=== PATIENT | female | born 1960 | race Caucasian/White ===

== ENCOUNTER → 2018-12-20 09:01 | Outpatient (CLI) | payer OTHER, SELFPAY ==
[2018-12-20 09:19] LABS: Hematocrit 37.3 % (36-46); Hemoglobin 12.6 g/dL (12.0-16.0); Mean Corpuscular HGB Conc 33.7 % (30-36); Mean Corpuscular Hemoglobin 30.1 PG (26-34); Mean Corpuscular Volume 89.5 fL (80-100); Platelet Count 228 X10^3/uL (150-400); Red Blood Cell Count 4.17 X10^6/uL (4.0-5.2); Red Cell Distribution Width 14.3 % (11.6-14.8)
[2018-12-20 09:50] LABS: Alanine Aminotransferase 18 IU/L (<35); Albumin Globulin Ratio 1.6 (1.0-2.8); Alkaline Phosphatase 34 U/L (38-126); Aspartate Aminotransferase 29 IU/L (14-36); BUN Creatinine Ratio 21.4 (6-22); Bilirubin Total 0.4 mg/dL (0.2-1.3); Blood Urea Nitrogen 15 mg/dL (7-17); Calcium 9.1 mg/dL (8.4-10.2); Carbon Dioxide 30 mmol/L (22-32); Chloride 102 mmol/L (98-107); Cholesterol 164 mg/dL (140-199); Estimated Glomerular Filt Rate > 60.0 mL/min (>60); Globulin 2.5 g/dL (1.7-4.1); Glucose 104 mg/dL (80-110); HDL Cholesterol 66 mg/dL (40-60); HEMOLYSIS < 15 (0-50); LDL Cholesterol Calculated 80 mg/dL (<100); Potassium 4.3 mmol/L (3.4-5.1); Sodium 136 mmol/L (137-145); Total Protein 6.5 g/dL (6.3-8.2); Triglycerides 91 mg/dL (35-150)
== END ==
PROVIDERS: PCP Nurse Practitioner Family; Visit Provider Nurse Practitioner Family
DX: Z00.00 Encounter for general adult medical examination without abnormal findings (principal)
CPT/HCPCS: 36415; 80053; 80061; 85027

== ENCOUNTER → 2019-12-19 09:37 | Outpatient (CLI) | payer OTHER, SELFPAY ==
[2019-12-19 10:05] LABS: Add Manual Diff / Slide Review NO; Basophils Absolute Auto 0 /uL (0-100); Eosinophils Absolute Auto 100 /uL (0-450); Eosinophils Percent Auto 2.6 % (2-4); Hematocrit 36.7 % (36-46); Hemoglobin 12.4 g/dL (12.0-16.0); Lymphocytes Absolute Auto 1200 /uL (1100-4500); Lymphocytes Percent Auto 30.2 % (25-40); Mean Corpuscular HGB Conc 33.7 % (30-36); Mean Corpuscular Hemoglobin 29.8 PG (26-34); Mean Corpuscular Volume 88.6 fL (80-100); Monocytes Absolute Auto 300 /uL (0-900); Monocytes Percent Auto 8.8 % (3-14); Neutrophils Absolute Auto 2200 /uL (1500-7000); Neutrophils Percent Auto 57.4 % (50-75); Platelet Count 230 X10^3/uL (150-400); Red Blood Cell Count 4.14 X10^6/uL (4.0-5.2); White Blood Cell Count 3.9 X10^3/uL (4.5-11.0)
[2019-12-19 10:16] LABS: Blood Urea Nitrogen 12 mg/dL (7-17); Calcium 9.1 mg/dL (8.4-10.2); Carbon Dioxide 33 mmol/L (22-32); Chloride 102 mmol/L (98-107); Estimated Glomerular Filt Rate > 60.0 mL/min (>60); Glucose 115 mg/dL (80-110); HEMOLYSIS < 15 (0-50); Potassium 4.3 mmol/L (3.4-5.1); Sodium 137 mmol/L (137-145)
[2019-12-19 12:12] LABS: Hemoglobin A1C% w Est Avg Glu 5.8 % (4.0-6.0)
== END ==
PROVIDERS: PCP Nurse Practitioner Family; Referring Provider Nurse Practitioner Family; Visit Provider Nurse Practitioner Family
DX: D72.819 Decreased white blood cell count, unspecified (principal); E87.1 Hypo-osmolality and hyponatremia; R73.9 Hyperglycemia, unspecified
CPT/HCPCS: 36415; 80048; 83036; 85025

== ENCOUNTER → 2020-03-30 11:52 | Outpatient (CLI) | payer OTHER, SELFPAY ==
[2020-03-30 12:28] LABS: COVID19 -Nasal RAPID Negative (Negative)
== END ==
PROVIDERS: PCP Nurse Practitioner Family; Visit Provider Surgery
DX: Z01.812 Encounter for preprocedural laboratory examination (principal); Z20.822 Contact with and (suspected) exposure to COVID-19
CPT/HCPCS: 87635; C9803

== ENCOUNTER 2020-04-02 13:33 | Day surgery (SDC) | payer OTHER, SELFPAY ==
[2020-04-02] VITALS (7 sets, daily range): BP systolic 117–154; BP diastolic 59–90; PULSE 16–89; RESP 12–72; TEMP 36.3–36.9; O2SAT 93–97; BMI 26.6
[2020-04-02] MEDS: LACTATED RINGERS 1,000 ML 200 ML IV (13:50)
--- NOTE | 2020-04-02 14:57 | PM.HP.1 ---
History of Present Illness History of Present Illness Date Patient Seen: 04/02/20 Time Patient Seen: 14:57 Chief complaint: [facility] Narrative: The patient presents for colorectal sreening. She had a normal colonoscopy 5 years ago and she has had prior polyps removed and previous endoscopies. Family history is significant for first-degree relative with colon cancer. On further history denies any recent gastrointestinal symptoms. No nausea, vomiting, abdominal pain, loss of appetite, unexplained weight loss, change in bowel habits, diarrhea, constipation, melena, hematochezia, or bright red blood per rectum. Patient History Medical History Altered bowel habits Anemia (~2012) Colon polyps (~2012) Herpes (~1985) Measles (~1962) Mumps (~1962) Pain of left breast Personal history of breast cancer (2014) Postnasal drip Shoulder pain (~2015) Surgical History Anesthesia History of dilatation and curettage (~1997) History of hand surgery (~1998) History of hand surgery (~2003) Status post breast lumpectomy (~2014) Family & Social History Family History Father Hypertension Stroke Mother Cancer Diabetes mellitus Hypertension Alzheimer's disease Dementia Brother Diabetes mellitus Tobacco & Substance use: Smoking Status Never smoker alcohol intake current alcohol intake frequency a few times a month Substance Use Type does not use Meds Home Medications and Allergies Home Medications Medication Instructions Recorded Confirmed Type Digest Basic PO DAILY 12/13/18 12/20/19 History Lactobacil.acidophilus-Bifido.animalis 1 cap PO DAILY 12/13/18 12/20/19 History 5 billion cell sprinkle capsule [place] [place] Ramon PO DAILY 12/13/18 12/20/19 History Reishi PO DAILY 12/13/18 12/20/19 History [place] Tail PO DAILY 12/13/18 12/20/19 History magnesium oxide,aspartate,citr mg PO 12/13/18 12/20/19 History kplpuqyt-amv-lcxp 18 mg-FA 400 tab PO 12/13/18 12/20/19 History mcg-calcium 500 mg-vit K 50 mcg tablet varicella-zoster glycoE [id number] 0.5 ml IM ONCE #1 each 12/13/18 12/20/19 Rx adj(PF) 50 mcg/0.5 mL IM susp, kit vitamin B complex 1 tab PO DAILY 12/13/18 12/20/19 History sodium,potassium,mag sulfates 17.5 177 ml PO DAILY #354 ml 03/26/20 Rx gram-3.13 gram-1.6 gram oral soln Allergies Allergy/AdvReac Type Severity Reaction Status Date / Time No Known Drug Allergies Allergy Verified 04/02/20 13:51 Review of Systems Review of Systems ROS: Yes All systems reviewed with the patient and are negative except as otherwise documented Exam Vital Signs (past 8 hours): - 04/02/20 13:53 Temperature 98.4 F Pulse Rate 71 Respiratory Rate 18 Blood Pressure 122/84 Pulse Oximetry 97 Oxygen Delivery Method Room Air Narrative Exam Narrative: General-no acute distress, well nourished adult woman HEENT-moist mucous membranes, no scleral icterus Neck-supple, no lymphadenopathy Chest- non labored respirations, clear to auscultation bilaterally Cardiac-regular rate no peripheral edema Abdomen-soft, nontender, non distended Extremities-warm, well perfused Neurological-alert and oriented, no focal deficits Assessment & Plan Assessment & Plan narrative: The patient requires colorectal screening and colonoscopy is recommended. Technical details were discussed. Risks, benefits, alternatives explained. Risks including but not limited to myocardial infarction, aspiration, bleeding, pain, missed lesion, incomplete examination, need for further radiographic studies, colonic perforation, and need for major abdominal surgery were discussed. All questions were answered to their satisfaction, and they are in agreement with this plan.
[2020-04-02] MEDS: fentaNYL 250 MCG/5 ML INJ IV (15:25)
[2020-04-02] MEDS: MIDAZOLAM 5 MG/5 ML VIAL IV (15:25)
--- NOTE | 2020-04-02 15:29 | PM.OP.ENDO ---
Operative Date/Time/Diagnoses Date of procedure: 04/02/20 Time of procedure: 15:29 Pre-op diagnosis: Family history of colon cancer Post-op diagnosis: same Procedure & Clinicians Study performed: Colonoscopy Indications: 59-year-old female last colonoscopy 5 years ago first-degree relative with colon cancer Surgeon: John Martinez Procedure Notes Procedure in detail: Medications: Conscious sedation using 5mg IV midazolam and 150mcg IV of fentanyl The history and physical was performed/updated and the patient is ASA class is 2. The procedure was discussed in detail with the patient. Potential risks complications including infection, bleeding, missed diagnosis, perforation, need for surgery, and were explained. Their questions were answered and informed consent was obtained. Patient was brought to the procedure room and placed standard monitoring equipment. The patient's vital signs were monitored continuously throughout the entire procedure. Prior to starting time-out was performed. The patient was placed in the left lateral recumbent position. Procedural sedation was administered. Examination began with a thorough inspection of the perianal area there was no evidence of fissures, fistulae, external hemorrhoids or cutaneous malignancy. The colonoscopy scope was then placed into the anal canal and was advanced to the cecum, which was identified by the ileocecal valve, the appendiceal orifice and the confluence of the taenia. The scope was then slowly withdrawn examining colon thoroughly in all directions, irrigating it of any residual stool. No masses or polyps Sigmoid diverticulosis Grade 1 internal hemorrhoids The patient tolerated the procedure well. They will be discharged once criteria are met. The prep was of good/excellent quality. The withdrawl time was 7 minutes. The sedation time was 20 minutes. Specimen(s): none sent Complications: none Impression: Normal colonoscopy Post-procedure Recommendations: Colonscopy in 5 years Disposition: same day surgery
== END 2020-04-02 16:07 | disposition home or self-care (01) ==
PROVIDERS: PCP Nurse Practitioner Family; Referring Provider Surgery; Visit Provider Surgery
PROC: 0DJD8ZZ Inspection of Lower Intestinal Tract, Via Natural or Artificial Opening Endoscopic (ICD-10-PCS; CPT 45378; principal; 2020-04-02 14:30)
DX: Z12.11 Encounter for screening for malignant neoplasm of colon (principal); Z80.0 Family history of malignant neoplasm of digestive organs; K57.30 Diverticulosis of large intestine without perforation or abscess without bleeding; K64.0 First degree hemorrhoids
CPT/HCPCS: 45378; 99152; J2250; J3010

== ENCOUNTER → 2021-05-06 11:57 | Outpatient (CLI) | payer OTHER, SELFPAY ==
--- NOTE | 2021-05-06 12:00 | DI.RAD.S_ITS ---
PROCEDURE: XR KNEE LT 3V INDICATIONS: ongoing pain TECHNIQUE: 3 views of the knee were acquired. COMPARISON: None. FINDINGS: Bones: No fractures or dislocations. No suspicious bony lesions. Mild tricompartmental knee joint degeneration. Soft tissues: No joint effusion. No suspicious soft tissue calcifications. IMPRESSION: Mild degenerative joint disease. Dictated by: Jamison Brown M.D. on 05/06/2021 at 14:17 Approved by: Jamison Brown M.D. on 05/06/2021 at 14:17
== END ==
PROVIDERS: Family Provider Nurse Practitioner Family; PCP Nurse Practitioner Family; Referring Provider Nurse Practitioner Family; Visit Provider Nurse Practitioner Family
DX: M25.562 Pain in left knee (principal); M17.12 Unilateral primary osteoarthritis, left knee
CPT/HCPCS: 73562

== ENCOUNTER → 2021-05-07 09:31 | Outpatient (CLI) | payer OTHER, SELFPAY ==
[2021-05-07 10:24] LABS: Hematocrit 36.9 % (36-46); Hemoglobin 12.4 g/dL (12.0-16.0); Mean Corpuscular HGB Conc 33.7 % (30-36); Mean Corpuscular Hemoglobin 29.5 PG (26-34); Mean Corpuscular Volume 87.6 fL (80-100); Platelet Count 274 X10^3/uL (150-400); Red Blood Cell Count 4.21 X10^6/uL (4.0-5.2); Red Cell Distribution Width 14.2 % (11.6-14.8); White Blood Cell Count 4.6 X10^3/uL (4.5-11.0)
[2021-05-07 11:17] LABS: Alanine Aminotransferase 19 IU/L (<35); Albumin 4.4 g/dL (3.5-5.0); Albumin Globulin Ratio 1.5 (1.0-2.8); Alkaline Phosphatase 45 U/L (38-126); Aspartate Aminotransferase 27 IU/L (14-36); BUN Creatinine Ratio 17.2 (6-22); Bilirubin Total 0.4 mg/dL (0.2-1.3); Blood Urea Nitrogen 11 mg/dL (7-17); Calcium 9.3 mg/dL (8.4-10.2); Carbon Dioxide 30 mmol/L (22-32); Chloride 102 mmol/L (98-107); Cholesterol 200 mg/dL (140-199); Estimated Glomerular Filt Rate > 60.0 mL/min (>60); Globulin 2.9 g/dL (1.7-4.1); Glucose 99 mg/dL (80-110); HDL Cholesterol 65 mg/dL (40-60); HEMOLYSIS < 15 (0-50); LDL Cholesterol Calculated 116 mg/dL (<100); Potassium 4.3 mmol/L (3.4-5.1); Sodium 137 mmol/L (137-145); Total Protein 7.3 g/dL (6.3-8.2); Triglycerides 95 mg/dL (35-150)
== END ==
PROVIDERS: Family Provider Nurse Practitioner Family; PCP Nurse Practitioner Family; Referring Provider Nurse Practitioner Family; Visit Provider Nurse Practitioner Family
DX: M25.562 Pain in left knee (principal); R10.2 Pelvic and perineal pain; Z00.00 Encounter for general adult medical examination without abnormal findings; Z13.6 Encounter for screening for cardiovascular disorders
CPT/HCPCS: 36415; 80053; 80061; 85027

== ENCOUNTER 2021-05-13 08:15 | Outpatient (RCR) | payer OTHER, SELFPAY ==
--- NOTE | 2021-04-08 17:47 | PT.OPPOC ---
Physical, Occupational & Speech Therapy At [facility] Current Diagnoses Pain in left knee (04/08/21) Visit Care Team Role Provider Type YESICA Meza Attending Provider Advanced Director Of Instruction Family Provider Primary Care Provider Referring Provider Specialty: Family Practice Address: [address] [place] [address], [id number] Email: [email or web address] Plan Of Care PT-OP-T Assessment and Plan Start: 04/02/21 16:53 Freq: Status: Active Protocol: Document 04/08/21 09:07 LRN (Rec: 04/08/21 12:20 LRN [id number]) Physical Therapy Assessment Rehab Potential Rehabilitation Potential Good Evaluation Complexity Number of Personal Factors/Comorbidities 0 Number of Body Systems Impaired 4 or More Clinical Presentation at Evaluation Evolving Impairments Impairments Activity Tolerance,Edema,Gait, Pain,ROM,Soft Tissue Mobility Goals Three Impairment Decreased function of L knee. Impairment Pt not able to ambulate down stairs without pain or with eventual onset of pain. LEFS score is 49 (20-39% impaired, score of 48-62) Short Term Goal (STG) Improve L knee AROM and Improve LEFS score. STG Duration 05/08/21 Machined Parts Metal Sprayer Goal (LTG) Pt will be able to ambulate up /down stairs with 0/10 pain at L knee. LTG Duration 06/21/21 Two Impairment Intermittent inability to exercise due to L knee pain rated 4/10. Impairment Pt not able to hike or walking inclines/declines without L knee pain. Short Term Goal (STG) Pt will be able to exercise on stationary bike at 70 rpm for 10 minutes to improve endurance. STG Duration 04/22/21 Machined Parts Metal Sprayer Goal (LTG) Improve posture (strengthen hamstrings) to minimize hyperextension of L knee, with pt able to get back to walking and hiking without pain. LTG Duration 06/21/21 One Impairment Pt lacks appropriates self care HEP Short Term Goal (STG) Pt will be educated in precautions of movement (no forcing movement if locked), and educated in self K-taping for edema and stability of L medial knee. STG Duration 04/15/21 Penitentiary Goal (LTG) Pt will be independent in a self care HEP of LLE strengthening ex's. LTG Duration 06/21/21 Assessment Summary Assessment Pt presents with possible L knee meniscus injury. She demonstrated a negative Frandy Test, but a positive Apley's Test, indicating possible meniscus injury. The pt's subjective reports also indicates possible meniscus involvement. The pt does demonstrate mechanical changes in her posture with visible valgus and hyperextension of the knees that are contributing to her lingering pain. The pt will benefit from skilled physical therapy for strengthening of the hips, knees (focus on hamstrings) and ankles, and will be progressed in her ambulatory and stair climbing abilities as she is able to tolerate. If the pt is not able to regain stability and pain resolution, it would be appropriate to assess for possible meniscus injury. The pt's rehabilitation time may be prolonged due to her insurance restrictions limiting her therapy visits. Physical Therapy Plan Frequency and Duration Frequency of Treatment 2x/Week Plan of Care Start Date 04/08/21 Plan of Care End Date 06/21/21 Therapeutic Interventions Therapeutic Interventions Home Exercise Program,Manual Therapy,Neuromuscular Re- education,Patient/Caregiver Education,Self-Care/Home Management,Soft Tissue Mobilization,Taping, Therapeutic Exercises Modalities Cold Pack/Ice Massage,Electric Stimulation,Hot Packs, Ultrasound Next Visit Focus/Plan Next Note Type Treatment Note Next Visit Plan Knee rehab for possible meniscus injury. Discuss POC in regards to insurance visit limit to date. Educate pt in proper standing posture (knees & thoracic spine) Assess balance before and after K-tape. K-tape with self care education, Increase L knee strength ( hamstrings - OKC 30-90 deg's > quads), strengthening with use of TBall, L ankle and hip ext strength, Improve L knee flexion mobility, Balance, gait & stair training , Improve L LE endurance (CKC rpm 70 or greater). Modalities of MH/Ice. Plan of Care Dates Plan of Care Start Date 04/08/21 Plan of Care End Date 06/21/21 Electronically Signed by: Oliva Baker, PT 04/10/21 0817 Please Sign and Return: I have reviewed this Plan of Care and certify that the skilled therapy services above are required to meet the patient?s needs. Physician Signature Date Printed Name and Credentials Clinical Instructor Signature Printed Name and Credentials
--- NOTE | 2021-04-08 17:47 | PT.OIE ---
Current Diagnoses Pain in left knee (04/08/21) Past Medical History (Last Reviewed 03/26/21 @ 13:30 by YESICA Kline) Altered bowel habits Anemia (~2012) Colon polyps (~2012) Herpes (~1985) History of dilatation and curettage (~1997) History of hand surgery (~1998) History of hand surgery (~2003) Left knee pain Measles (~1962) Mumps (~1962) Pain of left breast Personal history of breast cancer (2015) Postnasal drip Shoulder pain (~2015) Status post breast lumpectomy (~2014) Past Surgical History (Last Reviewed 03/26/21 @ 13:30 by YESICA Kline) Anesthesia History of dilatation and curettage (~1997) History of hand surgery (~1998) History of hand surgery (~2003) Status post breast lumpectomy (~2014) Visit Care Team Role Provider Type YESICA Meza Attending Provider Advanced Cut Off Machine Unloader Family Provider Primary Care Provider Referring Provider Specialty: Family Practice Address: [address] [place] [address], [facility] Email: [email or web address] Physical Therapy Initial Evaluation PT-OP-A Visit Information Start: 04/02/21 16:53 Freq: Status: Active Protocol: Document 04/08/21 09:07 LRLucila (Rec: 04/08/21 12:20 TORRI [id number]) Out-Patient Physical Therapy Visit Information Visit Information Visit Type Initial Evaluation Visit Note 6 of 25 visits allowed Visit Start Time 09:07 Visit Stop Time 09:54 Total Visit Minutes 53 Visit Number 1 Evaluation Information Evaluation Date 04/08/21 Precautions Precautions History of breast cancer in 2014. PT-OP-B Current Condition Start: 04/02/21 16:53 Freq: Status: Active Protocol: Document 04/08/21 09:07 LRN (Rec: 04/08/21 12:20 [email or web address] [id number]) Current Condition History of Current Condition Onset Date 6 weeks ago decided to seek medical care Current Complaints L knee pain intermittent History of Current Condition 6 months ago was doing wall squats, lunges, and sitting back on heels (on the floor), then a couple days later started to have knee pain. Denies injury of pain. Pain was initially under the patella, but now is around the joint. No change in last 6 months. L knee pain is intermittent in the days and after a day or two. Always wakes with pain. Has a click and has pain. If walks a lot, gets pain. Crossing leg and hears a click and all is fine. Walking even surfaces is fine, getting in/out of car is concerning because if have a twist, then can have pain. States downhill and down stairs is more painful than up. Walks a couple miles her L knee hurts . Feels like hyperextended L knee. Bending over sometimes causes the pain. Prior Treatments and Tests None Future Testing and Treatments Planned None Treatment Goals Patient/Caregiver Goals Pt goal is to get back to walking and hiking and stairs without pain. Prior Functional Status Baseline Function- ADL's Independent Baseline Function- Mobility Independent Baseline Function- Recreation/Hobbies 5 miles a day walking and hiking and able to do inclines /stairs without pain. Baseline Function- Other Able to squat Current Functional Impairments (Reported) Functional Limitations- ADL's Not able to squat Functional Limitations- Mobility/Gait Can only walk on flat surface 2 miles without pain. Not able to walk inclines/ declines, or hike without pain . Personal Factors Other Personal Factors That May Effect L Lumpectomy 2014 due to Therapy/Recovery breast cancer, clear ever since. Spouse, not working. Moved to [place] a couple years ago. PT-OP-C Subjective Start: 04/02/21 16:53 Freq: Status: Active Protocol: Document 04/08/21 09:07 N (Rec: 04/08/21 12:20 N [id number]) Patient Questionnaires Lower Extremity Functional Scale LEFS Score 49 LEFS Impairment 20 to 39% Impaired (Score 48- 62) OP-PT Pain Assessment Pain Assessment Grid Paper Pain Assessment Grid Completed Yes Location L knee Pain Location Details L knee joint Intensity 4 Scale Used Numeric (0 - 10) Frequency Occasional Pain Duration No pattern to pain Pain Aggravating Factors Changing Position,Walking Other Pain Aggravating Factors Sometimes Quad strengthening Comments Pain Comments When having L knee pain, pain getting up out of chair and with initial walk and if walking too far. When having the pain also has pain in L SIJ. PT-OP-G Mobility & Gait Start: 04/02/21 16:53 Freq: Status: Active Protocol: Document 04/08/21 09:07 LRN (Rec: 04/08/21 12:20 LRN [id number]) Stair Climbing Evaluation Comments Stair Climbing Comments States she starts to get L knee pain going down stairs. Uses railing on the R whenever she can. PT-OP-J Posture/Palpation/Skin Start: 04/02/21 16:53 Freq: Status: Active Protocol: Document 04/08/21 09:07 LRN (Rec: 04/08/21 12:20 LRN [id number]) Posture Evaluation Position Standing Head/C-Spine Posture Forward Head T-Spine Posture Flattened L-Spine Posture Decreased Lordosis Pelvis Posture Neutral Weight Distribution Balanced Hip Posture (R) Externally Rotated Knee Posture (L) Genu Valgus,(R) Genu Valgus Ankle/Foot Posture (L) Calcaneal Eversion Foot Arch (R) Low Arch,(L) No Arch Comments Posture Comments Kyphosis at mid back, develped calf left > right. Palpation Assessment Location L knee Palpation Location L knee patella and joint. Palpation Details Crepitus at patella. No palpable tenderness. PT-OP-K Range of Motion Start: 04/02/21 16:53 Freq: Status: Active Protocol: Document 04/08/21 09:07 LRN (Rec: 04/08/21 12:20 N [id number]) Hip Goniometric Range of Motion Hip Right Passive Hip ROM WFL Yes Testing Position Supine Straight Leg Raise 90 Left Passive Testing Position Supine Straight Leg Raise 90 Knee Goniometric Range of Motion Knee Right Knee ROM WFL Yes Patient Position Supine Flexion Active (degrees) 140 Comments Passive ext: Hyperext of 8 deg 's Left Knee ROM WFL No Patient Position Supine Flexion Active (degrees) 139 Comments Uncomfortable in max flexion Passive ext: Hyperext of 8 deg 's PT-OP-L Special Tests Start: 04/02/21 16:53 Freq: Status: Active Protocol: Document 04/08/21 09:07 LRN (Rec: 04/08/21 12:20 [facility] [id number]) Special Tests Knee Special Tests Apley's Compression Test Results L knee positive with compression and IR Patellar Grind Test Test Results L knee positive Frandy Test Test Results L knee negative Varus- 25 Degrees Test Results L knee negative Valgus- 25 Degrees Test Results L knee negative Kirk's Test Results L knee negative Anterior Draw Test Results L knee negative PT-OP-M Strength Start: 04/02/21 16:53 Freq: Status: Active Protocol: Document 04/08/21 09:07 LRN (Rec: 04/08/21 12:20 LRN [id number]) Hip Strength Hip Manual Muscle Testing Right Extension (S1) 4- Good- Comments Generally 5/5, except as noted above Left Extension (S1) 4- Good- Comments Generally 5/5, except as noted above Knee Strength Knee Manual Muscle Testing Right Comments Generally 5/5 Left Comments Generally 5/5 Ankle/Foot Strength Ankle and Foot Manual Muscle Testing Right Comments Generally 5/5 Left Comments Generally 5/5 PT-OP-Q Treatments Start: 04/02/21 16:53 Freq: Status: Active Protocol: Document 04/08/21 09:07 LRN (Rec: 04/08/21 12:20 LRN [id number]) Self-Care/Home Management Treatment Education Other Education Discussed at length results of evaluation, discussed her goals and plan of care that pt was agreeable to. Discussed post therapy results and possible further evaluations for meniscus injury. Discussed briefly pt to not force unlock knee if becomes stuck. Discussed RICE treatment for edema management. Discussed possible use of K- tape for pain and edema management. Deferred further talk due to time and assured pt that use of K-tape would be appropriate. Activities Self-Care/Home Management Activities I/S pt in HEP: Knee flex strengthening. Discussed ex's that she is doing at home. Ok'd ex with T-ball for supine knee flexion and bridging with ankles on T-ball. PT-OP-T Assessment and Plan Start: 04/02/21 16:53 Freq: Status: Active Protocol: Document 04/08/21 09:07 LRN (Rec: 04/08/21 12:20 LRN [id number]) Physical Therapy Assessment Rehab Potential Rehabilitation Potential Good Evaluation Complexity Number of Personal Factors/Comorbidities 0 Number of Body Systems Impaired 4 or More Clinical Presentation at Evaluation Evolving Impairments Impairments Activity Tolerance,Edema,Gait, Pain,ROM,Soft Tissue Mobility Goals Three Impairment Decreased function of L knee. Impairment Pt not able to ambulate down stairs without pain or with eventual onset of pain. LEFS score is 49 (20-39% impaired, score of 48-62) Short Term Goal (STG) Improve L knee AROM and Improve LEFS score. STG Duration 05/08/21 Half-Way Goal (LTG) Pt will be able to ambulate up /down stairs with 0/10 pain at L knee. LTG Duration 06/21/21 Two Impairment Intermittent inability to exercise due to L knee pain rated 4/10. Impairment Pt not able to hike or walking inclines/declines without L knee pain. Short Term Goal (STG) Pt will be able to exercise on stationary bike at 70 rpm for 10 minutes to improve endurance. STG Duration 04/22/21 Half-Way Goal (LTG) Improve posture (strengthen hamstrings) to minimize hyperextension of L knee, with pt able to get back to walking and hiking without pain. LTG Duration 06/21/21 One Impairment Pt lacks appropriates self care HEP Short Term Goal (STG) Pt will be educated in precautions of movement (no forcing movement if locked), and educated in self K-taping for edema and stability of L medial knee. STG Duration 04/15/21 Shredded Filler Cutter Operator Goal (LTG) Pt will be independent in a self care HEP of LLE strengthening ex's. LTG Duration 06/21/21 Assessment Summary Assessment Pt presents with possible L knee meniscus injury. She demonstrated a negative Frandy Test, but a positive Apley's Test, indicating possible meniscus injury. The pt's subjective reports also indicates possible meniscus involvement. The pt does demonstrate mechanical changes in her posture with visible valgus and hyperextension of the knees that are contributing to her lingering pain. The pt will benefit from skilled physical therapy for strengthening of the hips, knees (focus on hamstrings) and ankles, and will be progressed in her ambulatory and stair climbing abilities as she is able to tolerate. If the pt is not able to regain stability and pain resolution, it would be appropriate to assess for possible meniscus injury. The pt's rehabilitation time may be prolonged due to her insurance restrictions limiting her therapy visits. Physical Therapy Plan Frequency and Duration Frequency of Treatment 2x/Week Plan of Care Start Date 04/08/21 Plan of Care End Date 06/21/21 Therapeutic Interventions Therapeutic Interventions Home Exercise Program,Manual Therapy,Neuromuscular Re- education,Patient/Caregiver Education,Self-Care/Home Management,Soft Tissue Mobilization,Taping, Therapeutic Exercises Modalities Cold Pack/Ice Massage,Electric Stimulation,Hot Packs, Ultrasound Next Visit Focus/Plan Next Note Type Treatment Note Next Visit Plan Knee rehab for possible meniscus injury. Discuss POC in regards to insurance visit limit to date. Educate pt in proper standing posture (knees & thoracic spine) Assess balance before and after K-tape. K-tape with self care education, Increase L knee strength ( hamstrings - OKC 30-90 deg's > quads), strengthening with use of TBall, L ankle and hip ext strength, Improve L knee flexion mobility, Balance, gait & stair training , Improve L LE endurance (CKC rpm 70 or greater). Modalities of MH/Ice.
--- NOTE | 2021-04-12 16:25 | PT.OTN ---
Current Diagnoses Pain in left knee (04/12/21) Physical Therapy Treatment Note PT-OP-A Visit Information Start: 04/02/21 16:53 Freq: Status: Active Protocol: Document 04/12/21 09:04 LRN (Rec: 04/12/21 09:51 LRN [id number]) Out-Patient Physical Therapy Visit Information Visit Information Visit Type Treatment Note Visit Note 03/14 approved, 08/30 allowed Visit Start Time 09:04 Visit Stop Time 09:42 Total Visit Minutes 38 Visit Number 2 Evaluation Information Evaluation Date 04/08/21 Precautions Precautions History of breast cancer in 2014. PT-OP-B Current Condition Start: 04/02/21 16:53 Freq: Status: Active Protocol: Document 04/08/21 09:07 LRN (Rec: 04/08/21 12:20 LRN [id number]) Current Condition History of Current Condition Onset Date 6 weeks ago decided to seek medical care Current Complaints L knee pain intermittent History of Current Condition 6 months ago was doing wall squats, lunges, and sitting back on heels (on the floor), then a couple days later started to have knee pain. Denies injury of pain. Pain was initially under the patella, but now is around the joint. No change in last 6 months. L knee pain is intermittent in the days and after a day or two. Always wakes with pain. Has a click and has pain. If walks a lot, gets pain. Crossing leg and hears a click and all is fine. Walking even surfaces is fine, getting in/out of car is concerning because if have a twist, then can have pain. States downhill and down stairs is more painful than up. Walks a couple miles her L knee hurts . Feels like hyperextended L knee. Bending over sometimes causes the pain. Prior Treatments and Tests None Future Testing and Treatments Planned None Treatment Goals Patient/Caregiver Goals Pt goal is to get back to walking and hiking and stairs without pain. Prior Functional Status Baseline Function- ADL's Independent Baseline Function- Mobility Independent Baseline Function- Recreation/Hobbies 5 miles a day walking and hiking and able to do inclines /stairs without pain. Baseline Function- Other Able to squat Current Functional Impairments (Reported) Functional Limitations- ADL's Not able to squat Functional Limitations- Mobility/Gait Can only walk on flat surface 2 miles without pain. Not able to walk inclines/ declines, or hike without pain . Personal Factors Other Personal Factors That May Effect L Lumpectomy 2015 due to Therapy/Recovery breast cancer, clear ever since. Spouse, not working. Moved to [place] a couple years ago. PT-OP-C Subjective Start: 04/02/21 16:53 Freq: Status: Active Protocol: Document 04/12/21 09:04 LRN (Rec: 04/12/21 09:51 LRN [id number]) OP-PT Subjective Patient Comments Patient Comments States did a lot of gardening and Sat was not a good day due to L knee pain. Today 2/10 pain (uncomfortable). PT-OP-G Mobility & Gait Start: 04/02/21 16:53 Freq: Status: Active Protocol: Document 04/08/21 09:07 LRN (Rec: 04/08/21 12:20 LRN [id number]) Stair Climbing Evaluation Comments Stair Climbing Comments States she starts to get L knee pain going down stairs. Uses railing on the R whenever she can. PT-OP-J Posture/Palpation/Skin Start: 04/02/21 16:53 Freq: Status: Active Protocol: Document 04/08/21 09:07 LRN (Rec: 04/08/21 12:20 LRN [id number]) Posture Evaluation Position Standing Head/C-Spine Posture Forward Head T-Spine Posture Flattened L-Spine Posture Decreased Lordosis Pelvis Posture Neutral Weight Distribution Balanced Hip Posture (R) Externally Rotated Knee Posture (L) Genu Valgus,(R) Genu Valgus Ankle/Foot Posture (L) Calcaneal Eversion Foot Arch (R) Low Arch,(L) No Arch Comments Posture Comments Kyphosis at mid back, develped calf left > right. Palpation Assessment Location L knee Palpation Location L knee patella and joint. Palpation Details Crepitus at patella. No palpable tenderness. PT-OP-K Range of Motion Start: 04/02/21 16:53 Freq: Status: Active Protocol: Document 04/08/21 09:07 LRN (Rec: 04/08/21 12:20 LRN [id number]) Hip Goniometric Range of Motion Hip Right Passive Hip ROM WFL Yes Testing Position Supine Straight Leg Raise 90 Left Passive Testing Position Supine Straight Leg Raise 90 Knee Goniometric Range of Motion Knee Right Knee ROM WFL Yes Patient Position Supine Flexion Active (degrees) 140 Comments Passive ext: Hyperext of 8 deg 's Left Knee ROM WFL No Patient Position Supine Flexion Active (degrees) 139 Comments Uncomfortable in max flexion Passive ext: Hyperext of 8 deg 's PT-OP-L Special Tests Start: 04/02/21 16:53 Freq: Status: Active Protocol: Document 04/08/21 09:07 LRN (Rec: 04/08/21 12:20 LRN [id number]) Special Tests Knee Special Tests Apley's Compression Test Results L knee positive with compression and IR Patellar Grind Test Test Results L knee positive Frandy Test Test Results L knee negative Varus- 25 Degrees Test Results L knee negative Valgus- 25 Degrees Test Results L knee negative Kirk's Test Results L knee negative Anterior Draw Test Results L knee negative PT-OP-M Strength Start: 04/02/21 16:53 Freq: Status: Active Protocol: Document 04/08/21 09:07 LRN (Rec: 04/08/21 12:20 LRN [id number]) Hip Strength Hip Manual Muscle Testing Right Extension (S1) 4- Good- Comments Generally 5/5, except as noted above Left Extension (S1) 4- Good- Comments Generally 5/5, except as noted above Knee Strength Knee Manual Muscle Testing Right Comments Generally 5/5 Left Comments Generally 5/5 Ankle/Foot Strength Ankle and Foot Manual Muscle Testing Right Comments Generally 5/5 Left Comments Generally 5/5 PT-OP-Q Treatments Start: 04/02/21 16:53 Freq: Status: Active Protocol: Document 04/12/21 09:04 LRN (Rec: 04/12/21 09:51 LRN [id number]) Cardio Equipment Bicycle (Upright) Duration (Minutes) 7 Resistance Lev 3, RPM of 70 or above Seat Position 4 Other 3' Extra time for 1xt time set up. Gym Equipment Cable Column (Body Solid) Leg Curl Details Leg curl with L as much as possible Resistance 10 Reps/Time 10 Therapeutic Exercises Sitting Exercises L knee flex stretch Sitting Exercise Name L knee flex stretch - after upright bike. Side left Reps/Minutes 10 H x 6 Standing Exercises Knee flex Standing Exercise Name Knee flex Side left Equipment Used Lev 1 Reps/Minutes 4' Comments Modifying leg movement, stopped due to lateral L knee pain Hip Ext Standing Exercise Name Hip Ext Side bilateral Equipment Used Lev 1 Reps/Minutes 15x each Comments phys assist to keep leg moving without ER & AB Other Exercises Long sit Quad sets Other Exercise Name Quad set Side left Reps/Minutes 10 x 10 Comments v cuing to not engage ankle. Manual Therapy Treatment Taping K-tape Body Location Star pattern at lateral L knee joint Treatment Focus Stability Type of Tape Kinesio Tape Skin Inspection Good Comments Pt educated in proper removal of tape and max wear time of 5 days. Educated pt in precautions of use of K-tape. I/S pt to remove 24 hours before next appointment. Self-Care/Home Management Treatment Education Patient Education Home Exercise Program Activities Self-Care/Home Management Activities Verbal I/S of L knee stretch throughout the day. Issued & reviewed HEP: QS & knee flex stretch. PT-OP-T Assessment and Plan Start: 04/02/21 16:53 Freq: Status: Active Protocol: Document 04/12/21 09:04 LRN (Rec: 04/12/21 09:51 LRN [id number]) Physical Therapy Assessment Goals Three Impairment Decreased function of L knee. Impairment Pt not able to ambulate down stairs without pain or with eventual onset of pain. LEFS score is 49 (20-39% impaired, score of 48-62) Short Term Goal (STG) Improve L knee AROM and Improve LEFS score. STG Duration 05/08/21 Warp Knitter Goal (LTG) Pt will be able to ambulate up /down stairs with 0/10 pain at L knee. LTG Duration 06/21/21 Two Impairment Intermittent inability to exercise due to L knee pain rated 4/10. Impairment Pt not able to hike or walking inclines/declines without L knee pain. Short Term Goal (STG) Pt will be able to exercise on stationary bike at 70 rpm for 10 minutes to improve endurance. (04/12/21: Progressed, pt able to do 6 minutes of ex) STG Duration 04/22/21 (04/12/21: Progressed) Warp Knitter Goal (LTG) Improve posture (strengthen hamstrings) to minimize hyperextension of L knee, with pt able to get back to walking and hiking without pain. LTG Duration 06/21/21 One Impairment Pt lacks appropriates self care HEP Short Term Goal (STG) Pt will be educated in precautions of movement (no forcing movement if locked), and educated in self K-taping for edema and stability of L medial knee. (04/12/21: Educated pt in use of K-tape and showed pt star pattern for stability to L lateral knee) STG Duration 04/15/21 (04/12/21: K-tape for stability shown). Warp Knitter Goal (LTG) Pt will be independent in a self care HEP of LLE strengthening ex's. (04/12/21: HEP: QS & Knee flex stretch). LTG Duration 06/21/21 (04/12/21: Progressed ) Progress Towards Goals Progress Comments Progressed HEP and education in use of K-tape. Assessment Summary Assessment Possible L knee meniscus injury but no significant pain to start. Pt is not able to move LE's into pure extension. She tends to ER & ABD her hip with hip ext and needed phys assist to perform properly; therefore further training is needed. Pt only had c/o pain with L knee strengthening in standing with T-Band. Pt appears to have a good understanding of precautions and proper use of K-tape and removal. Physical Therapy Plan Frequency and Duration Frequency of Treatment 2x/Week Plan of Care Start Date 04/08/21 Plan of Care End Date 06/21/21 Next Visit Focus/Plan Next Note Type Treatment Note Next Visit Plan Knee rehab for possible meniscus injury. Discuss POC in regards to insurance visit limit to date (6 approved of 25 allowed). Educate pt in proper standing posture (knees & thoracic spine) Assess balance before and after K-tape, Increase L knee strength ( hamstrings - OKC 30-90 deg's > quads), strengthening with use of TBall, L ankle and hip ext strength, Improve L knee flexion mobility, Balance, gait & stair training , Improve L LE endurance (CKC rpm 70 or greater). Modalities of MH/Ice.
--- NOTE | 2021-04-15 09:50 | PT.OTN ---
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 PT-OP-B Current Condition Start: 04/02/21 16:53 Freq: Status: Active Protocol: Document 04/08/21 09:07 LRN (Rec: 04/08/21 12:20 LRN [id number]) Current Condition History of Current Condition Onset Date 6 weeks ago decided to seek medical care Current Complaints L knee pain intermittent History of Current Condition 6 months ago was doing wall squats, lunges, and sitting back on heels (on the floor), then a couple days later started to have knee pain. Denies injury of pain. Pain was initially under the patella, but now is around the joint. No change in last 6 months. L knee pain is intermittent in the days and after a day or two. Always wakes with pain. Has a click and has pain. If walks a lot, gets pain. Crossing leg and hears a click and all is fine. Walking even surfaces is fine, getting in/out of car is concerning because if have a twist, then can have pain. States downhill and down stairs is more painful than up. Walks a couple miles her L knee hurts . Feels like hyperextended L knee. Bending over sometimes causes the pain. Prior Treatments and Tests None Future Testing and Treatments Planned None Treatment Goals Patient/Caregiver Goals Pt goal is to get back to walking and hiking and stairs without pain. Prior Functional Status Baseline Function- ADL's Independent Baseline Function- Mobility Independent Baseline Function- Recreation/Hobbies 5 miles a day walking and hiking and able to do inclines /stairs without pain. Baseline Function- Other Able to squat Current Functional Impairments (Reported) Functional Limitations- ADL's Not able to squat Functional Limitations- Mobility/Gait Can only walk on flat surface 2 miles without pain. Not able to walk inclines/ declines, or hike without pain . Personal Factors Other Personal Factors That May Effect L Lumpectomy 2015 due to Therapy/Recovery breast cancer, clear ever since. Spouse, not working. Moved to [place] a couple years ago. PT-OP-C Subjective Start: 04/02/21 16:53 Freq: Status: Active Protocol: Document 04/15/21 09:04 SP (Rec: 04/15/21 09:52 SP [id number]) OP-PT Subjective Patient Comments Patient Comments Pt reports felt ok after last tx. Tried to do her exercises since and having pain anterior medial L knee. PT stated didn't think K taping helped, didn't want retaped. PT-OP-G Mobility & Gait Start: 04/02/21 16:53 Freq: Status: Active Protocol: Document 04/08/21 09:07 LRN (Rec: 04/08/21 12:20 LRN [id number]) Stair Climbing Evaluation Comments Stair Climbing Comments States she starts to get L knee pain going down stairs. Uses railing on the R whenever she can. PT-OP-J Posture/Palpation/Skin Start: 04/02/21 16:53 Freq: Status: Active Protocol: Document 04/08/21 09:07 LRN (Rec: 04/08/21 12:20 LRN [id number]) Posture Evaluation Position Standing Head/C-Spine Posture Forward Head T-Spine Posture Flattened L-Spine Posture Decreased Lordosis Pelvis Posture Neutral Weight Distribution Balanced Hip Posture (R) Externally Rotated Knee Posture (L) Genu Valgus,(R) Genu Valgus Ankle/Foot Posture (L) Calcaneal Eversion Foot Arch (R) Low Arch,(L) No Arch Comments Posture Comments Kyphosis at mid back, develped calf left > right. Palpation Assessment Location L knee Palpation Location L knee patella and joint. Palpation Details Crepitus at patella. No palpable tenderness. PT-OP-K Range of Motion Start: 04/02/21 16:53 Freq: Status: Active Protocol: Document 04/08/21 09:07 LRN (Rec: 04/08/21 12:20 LRN [id number]) Hip Goniometric Range of Motion Hip Right Passive Hip ROM WFL Yes Testing Position Supine Straight Leg Raise 90 Left Passive Testing Position Supine Straight Leg Raise 90 Knee Goniometric Range of Motion Knee Right Knee ROM WFL Yes Patient Position Supine Flexion Active (degrees) 140 Comments Passive ext: Hyperext of 8 deg 's Left Knee ROM WFL No Patient Position Supine Flexion Active (degrees) 139 Comments Uncomfortable in max flexion Passive ext: Hyperext of 8 deg 's PT-OP-L Special Tests Start: 04/02/21 16:53 Freq: Status: Active Protocol: Document 04/08/21 09:07 LRN (Rec: 04/08/21 12:20 LRN [id number]) Special Tests Knee Special Tests Apley's Compression Test Results L knee positive with compression and IR Patellar Grind Test Test Results L knee positive Frandy Test Test Results L knee negative Varus- 25 Degrees Test Results L knee negative Valgus- 25 Degrees Test Results L knee negative Kirk's Test Results L knee negative Anterior Draw Test Results L knee negative PT-OP-M Strength Start: 04/02/21 16:53 Freq: Status: Active Protocol: Document 04/08/21 09:07 LRN (Rec: 04/08/21 12:20 LRN [id number]) Hip Strength Hip Manual Muscle Testing Right Extension (S1) 4- Good- Comments Generally 5/5, except as noted above Left Extension (S1) 4- Good- Comments Generally 5/5, except as noted above Knee Strength Knee Manual Muscle Testing Right Comments Generally 5/5 Left Comments Generally 5/5 Ankle/Foot Strength Ankle and Foot Manual Muscle Testing Right Comments Generally 5/5 Left Comments Generally 5/5 PT-OP-Q Treatments Start: 04/02/21 16:53 Freq: Status: Active Protocol: Document 04/15/21 09:04 SP (Rec: 04/15/21 09:52 SP [id number]) Cardio Equipment Recumbent Bicycle Duration (Minutes) 6 Resistance 4 Seat Position on 3 Bicycle (Upright) Other (stated upright bike seat tips forward/ slide off not want use) Gym Equipment Cable Column (Body Solid) Leg Curl Details Leg curl with L as much as possible Resistance 10> 20# Reps/Time x10 each- cued foot with knee alignment Therapeutic Exercises Sitting Exercises HS curl Sitting Exercise Name added to HEP Side left Resistance Tb #1 (anchored rail and ankle ) Equipment Used fully back in chair/ femur supported, slider under foot Reps/Minutes x10 Comments good feedback painfree midrange L knee flex stretch Sitting Exercise Name L knee flex stretch - (SKTC set up) Side left Reps/Minutes 10 H x 6 Comments good form, painfree, good stretch response Standing Exercises step down Standing Exercise Name Initiated for knee/ hip alignment. Side left Resistance AROM Equipment Used 2 wedge step Reps/Minutes x3 reps then walk down wedge assimulate outdoors down hill Comments cued pelvic wt shift posteriorly slightly- good no anterior knee pain. Knee flex Standing Exercise Name Knee flex (knees //) Side left Resistance yellow sport cord, Equipment Used chair contact, mirror feedback Reps/Minutes x10 Comments painfree ok for home Hip Ext Standing Exercise Name Hip Ext- reviewed HEP Side bilateral Resistance AROM> L3 TB Loop Equipment Used chair support,mirror Reps/Minutes 15x each Comments improved self alignment corrections. Self-Care/Home Management Treatment Education Patient Education Body Mechanics,Home Exercise Program,Pain Management, Posture Other Education Time spent education, demonstration, performance decline gait reduce anterior knee pain, cued wt shift hips back little with awareness of posterior chain facilitation with good feedback demonstrated on wedge boards then step down for alignment awareness, not necessarily need do as exercise, recheck next tx. Initiated standing hip ext TB loop, seated HS curl w /T, and step down for mechanics awareness (HOprovided) PT-OP-T Assessment and Plan Start: 04/02/21 16:53 Freq: Status: Active Protocol: Document 04/15/21 09:04 SP (Rec: 04/15/21 09:52 SP [id number]) Physical Therapy Assessment Goals Three Impairment Decreased function of L knee. Impairment Pt not able to ambulate down stairs without pain or with eventual onset of pain. LEFS score is 49 (20-39% impaired, score of 48-62) Short Term Goal (STG) Improve L knee AROM and Improve LEFS score. STG Duration 05/08/21 Detention Goal (LTG) Pt will be able to ambulate up /down stairs with 0/10 pain at L knee. LTG Duration 06/21/21 Two Impairment Intermittent inability to exercise due to L knee pain rated 4/10. Impairment Pt not able to hike or walking inclines/declines without L knee pain. Short Term Goal (STG) Pt will be able to exercise on stationary bike at 70 rpm for 10 minutes to improve endurance. (04/12/21: Progressed, pt able to do 6 minutes of ex) STG Duration 04/22/21 (04/12/21: Progressed) Detention Goal (LTG) Improve posture (strengthen hamstrings) to minimize hyperextension of L knee, with pt able to get back to walking and hiking without pain. LTG Duration 06/21/21 One Impairment Pt lacks appropriates self care HEP Short Term Goal (STG) Pt will be educated in precautions of movement (no forcing movement if locked), and educated in self K-taping for edema and stability of L medial knee. (04/12/21: Educated pt in use of K-tape and showed pt star pattern for stability to L lateral knee) 04/15/21: K taping didnt help, declined retaping- improved pain with ed for knee/hip/ trunk alignment and HS set up muscle tiring. STG Duration 04/15/21 04/15/21: didn't help- DC goal Commercial Solar Sales Consultant Goal (LTG) Pt will be independent in a self care HEP of LLE strengthening ex's. (04/12/21: HEP: QS & Knee flex stretch). LTG Duration 06/21/21 (04/12/21: Progressed ) Assessment Summary Assessment Pt improved L knee alignment corrections post education and emphasis tx on HS facilitation to decrease hyperextension noted during gait. Pt better HS strengthening without pain this tx. Better understanding alignment decline gait. Recheck next tx response. Pt declined upright bike due to seat tilts forward, felt like sliding off forward, trialed recumbent bike, caused pain L knee so stopped. Physical Therapy Plan Frequency and Duration Frequency of Treatment 2x/Week Plan of Care Start Date 04/08/21 Plan of Care End Date 06/21/21 Therapeutic Interventions Therapeutic Interventions Home Exercise Program,Manual Therapy,Neuromuscular Re- education,Patient/Caregiver Education,Self-Care/Home Management,Soft Tissue Mobilization,Taping, Therapeutic Exercises Modalities Cold Pack/Ice Massage,Electric Stimulation,Hot Packs, Ultrasound Next Visit Focus/Plan Next Note Type Treatment Note Next Visit Plan Recheck HEP: seated HS curl TB , hip ext TB loop, step down LLE stance LE posterior chain wt shift. POC: Knee rehab for possible meniscus injury. Discuss POC in regards to insurance visit limit to date (6 approved of 25 allowed). Educate pt in proper standing posture (knees & thoracic spine) Assess balance before and after K-tape, Increase L knee strength ( hamstrings - OKC 30-90 deg's > quads), strengthening with use of TBall, L ankle and hip ext strength, Improve L knee flexion mobility, Balance, gait & stair training , Improve L LE endurance (CKC rpm 70 or greater). Modalities of MH/Ice.
--- NOTE | 2021-04-19 17:16 | PT.OTN ---
Current Diagnoses Pain in left knee (04/19/21) Physical Therapy Treatment Note PT-OP-A Visit Information Start: 04/02/21 16:53 Freq: Status: Active Protocol: Document 04/19/21 08:18 LRN (Rec: 04/19/21 09:06 LRN [id number]) Out-Patient Physical Therapy Visit Information Visit Information Visit Type Treatment Note Visit Start Time 08:18 Visit Stop Time 09:00 Total Visit Minutes 42 Visit Number 4 Evaluation Information Evaluation Date 04/08/21 Precautions Precautions History of breast cancer in 2014. PT-OP-B Current Condition Start: 04/02/21 16:53 Freq: Status: Active Protocol: Document 04/08/21 09:07 LRN (Rec: 04/08/21 12:20 LRN [id number]) Current Condition History of Current Condition Onset Date 6 weeks ago decided to seek medical care Current Complaints L knee pain intermittent History of Current Condition 6 months ago was doing wall squats, lunges, and sitting back on heels (on the floor), then a couple days later started to have knee pain. Denies injury of pain. Pain was initially under the patella, but now is around the joint. No change in last 6 months. L knee pain is intermittent in the days and after a day or two. Always wakes with pain. Has a click and has pain. If walks a lot, gets pain. Crossing leg and hears a click and all is fine. Walking even surfaces is fine, getting in/out of car is concerning because if have a twist, then can have pain. States downhill and down stairs is more painful than up. Walks a couple miles her L knee hurts . Feels like hyperextended L knee. Bending over sometimes causes the pain. Prior Treatments and Tests None Future Testing and Treatments Planned None Treatment Goals Patient/Caregiver Goals Pt goal is to get back to walking and hiking and stairs without pain. Prior Functional Status Baseline Function- ADL's Independent Baseline Function- Mobility Independent Baseline Function- Recreation/Hobbies 5 miles a day walking and hiking and able to do inclines /stairs without pain. Baseline Function- Other Able to squat Current Functional Impairments (Reported) Functional Limitations- ADL's Not able to squat Functional Limitations- Mobility/Gait Can only walk on flat surface 2 miles without pain. Not able to walk inclines/ declines, or hike without pain . Personal Factors Other Personal Factors That May Effect L Lumpectomy 2015 due to Therapy/Recovery breast cancer, clear ever since. Spouse, not working. Moved to [place] a couple years ago. PT-OP-C Subjective Start: 04/02/21 16:53 Freq: Status: Active Protocol: Document 04/19/21 08:18 LRN (Rec: 04/19/21 09:06 LRN [id number]) OP-PT Subjective Patient Comments Patient Comments Pt to be gone for 1.5 wks, going on vacation. After last session her low back was painful. Her knee has felt better. Worked out in garden yesterday and her knee bothered her a little. This morning the knee felt a little worse, but not as bad as Fri/ Sat after last session. Pain is 4-5/10 after trying Recumbent bike. States walking doesn't hurt her. Pain after therapy was 0/10. PT-OP-G Mobility & Gait Start: 04/02/21 16:53 Freq: Status: Active Protocol: Document 04/08/21 09:07 LRN (Rec: 04/08/21 12:20 LRN [id number]) Stair Climbing Evaluation Comments Stair Climbing Comments States she starts to get L knee pain going down stairs. Uses railing on the R whenever she can. PT-OP-J Posture/Palpation/Skin Start: 04/02/21 16:53 Freq: Status: Active Protocol: Document 04/08/21 09:07 LRN (Rec: 04/08/21 12:20 LRN [id number]) Posture Evaluation Position Standing Head/C-Spine Posture Forward Head T-Spine Posture Flattened L-Spine Posture Decreased Lordosis Pelvis Posture Neutral Weight Distribution Balanced Hip Posture (R) Externally Rotated Knee Posture (L) Genu Valgus,(R) Genu Valgus Ankle/Foot Posture (L) Calcaneal Eversion Foot Arch (R) Low Arch,(L) No Arch Comments Posture Comments Kyphosis at mid back, develped calf left > right. Palpation Assessment Location L knee Palpation Location L knee patella and joint. Palpation Details Crepitus at patella. No palpable tenderness. PT-OP-K Range of Motion Start: 04/02/21 16:53 Freq: Status: Active Protocol: Document 04/08/21 09:07 LRN (Rec: 04/08/21 12:20 LRN [id number]) Hip Goniometric Range of Motion Hip Right Passive Hip ROM WFL Yes Testing Position Supine Straight Leg Raise 90 Left Passive Testing Position Supine Straight Leg Raise 90 Knee Goniometric Range of Motion Knee Right Knee ROM WFL Yes Patient Position Supine Flexion Active (degrees) 140 Comments Passive ext: Hyperext of 8 deg 's Left Knee ROM WFL No Patient Position Supine Flexion Active (degrees) 139 Comments Uncomfortable in max flexion Passive ext: Hyperext of 8 deg 's PT-OP-L Special Tests Start: 04/02/21 16:53 Freq: Status: Active Protocol: Document 04/08/21 09:07 LRN (Rec: 04/08/21 12:20 LRN [id number]) Special Tests Knee Special Tests Apley's Compression Test Results L knee positive with compression and IR Patellar Grind Test Test Results L knee positive Frandy Test Test Results L knee negative Varus- 25 Degrees Test Results L knee negative Valgus- 25 Degrees Test Results L knee negative Kirk's Test Results L knee negative Anterior Draw Test Results L knee negative PT-OP-M Strength Start: 04/02/21 16:53 Freq: Status: Active Protocol: Document 04/08/21 09:07 LRN (Rec: 04/08/21 12:20 LRN [id number]) Hip Strength Hip Manual Muscle Testing Right Extension (S1) 4- Good- Comments Generally 5/5, except as noted above Left Extension (S1) 4- Good- Comments Generally 5/5, except as noted above Knee Strength Knee Manual Muscle Testing Right Comments Generally 5/5 Left Comments Generally 5/5 Ankle/Foot Strength Ankle and Foot Manual Muscle Testing Right Comments Generally 5/5 Left Comments Generally 5/5 PT-OP-Q Treatments Start: 04/02/21 16:53 Freq: Status: Active Protocol: Document 04/19/21 08:18 LRN (Rec: 04/19/21 09:06 LRN [id number]) Cardio Equipment Bicycle (Upright) Duration (Minutes) 8 Resistance Lev 3, RPM of 70 or above Seat Position 6 with hand towel in front part of seat for comfort. Other 9' Extra time for determining best ex machine and set up Gym Equipment Cable Column (Body Solid) Leg Curl Details Leg curl with L as much as possible Resistance 15# Reps/Time x10 each- cued foot with knee alignment Therapeutic Exercises Prone Exercises L knee flex Prone Exercise Name L knee flex - reviewed Side left Reps/Minutes 10x Comments I/S and cued to hold foot in IR and keep foot aligned with hip. Standing Exercises MWM Stair ambulation Standing Exercise Name Descending while WBing on LLE Reps/Minutes 15' Comments MWM: Anterior [place] with ER @ knee jt on descend step down Standing Exercise Name Initiated for knee/ hip alignment. Side left Resistance AROM Equipment Used 2 wedge step Reps/Minutes x3 reps then walk down wedge assimulate outdoors down hill Comments cued pelvic wt shift posteriorly slightly- good no anterior knee pain. Hip Ext Standing Exercise Name Hip Ext- reviewed HEP Side bilateral Resistance AROM> L3 TB Loop Equipment Used chair support,mirror Reps/Minutes 15x each Comments Min alignment corrections needed, but ext mvmt small. PT-OP-T Assessment and Plan Start: 04/02/21 16:53 Freq: Status: Active Protocol: Document 04/19/21 08:18 LRN (Rec: 04/19/21 09:06 LRN [id number]) Physical Therapy Assessment Goals Three Impairment Decreased function of L knee. Impairment Pt not able to ambulate down stairs without pain or with eventual onset of pain. LEFS score is 49 (20-39% impaired, score of 48-62) Short Term Goal (STG) Improve L knee AROM and Improve LEFS score. STG Duration 05/08/21 Skilled Nursing Goal (LTG) Pt will be able to ambulate up /down stairs with 0/10 pain at L knee. LTG Duration 06/21/21 Two Impairment Intermittent inability to exercise due to L knee pain rated 4/10. Impairment Pt not able to hike or walking inclines/declines without L knee pain. Short Term Goal (STG) Pt will be able to exercise on stationary bike at 70 rpm for 10 minutes to improve endurance. (04/12/21: Progressed, pt able to do 6 minutes of ex) STG Duration 04/22/21 (04/19/21: Progressed ) Crime Scene Technician Goal (LTG) Improve posture (strengthen hamstrings) to minimize hyperextension of L knee, with pt able to get back to walking and hiking without pain. LTG Duration 06/21/21 One Impairment Pt lacks appropriates self care HEP Short Term Goal (STG) Pt will be educated in precautions of movement (no forcing movement if locked), and educated in self K-taping for edema and stability of L medial knee. (04/12/21: Educated pt in use of K-tape and showed pt star pattern for stability to L lateral knee) 04/15/21: K taping didnt help, declined retaping- improved pain with ed for knee/hip/ trunk alignment and HS set up muscle tiring. STG Duration 04/15/21 (04/15/21: didn't help - DC GOAL) Skilled Nursing Goal (LTG) Pt will be independent in a self care HEP of LLE strengthening ex's. (04/12/21: HEP: QS & Knee flex stretch). LTG Duration 06/21/21 (04/12/21: Progressed ) Assessment Summary Assessment Reduction in L knee pain with descending stairs from 3-05/16 to .75-02/15 with & after MWM at tib/fib. Pt demonstrates good form with hip ext ex, but has low movement excursion, probably due to weakness of gluteals. Informed pt of insurance visit limit to date (6 approved of 25 allowed), pt understands on return for vacation she will have 2 visits f/b possible interruption of therapy to insure her insurance will cover her therapy visits.. Physical Therapy Plan Frequency and Duration Frequency of Treatment 2x/Week Plan of Care Start Date 04/08/21 Plan of Care End Date 06/21/21 Next Visit Focus/Plan Next Note Type Treatment Note Next Visit Plan Recheck HEP: seated HS curl TB , step down LLE stance LE posterior chain wt shift. POC: Knee rehab for possible meniscus injury. Educate pt in proper standing posture (knees & thoracic spine) Assess balance before and after K-tape, Increase L knee strength ( hamstrings - OKC 30-90 deg's > quads), strengthening with use of TBall, L ankle and hip ext strength, Improve L knee flexion mobility, Balance, gait & stair training , Improve L LE endurance (CKC rpm 70 or greater). Modalities of MH/Ice.
--- NOTE | 2021-05-03 16:48 | PT.OTN ---
Current Diagnoses Pain in left knee (05/03/21) Physical Therapy Treatment Note PT-OP-A Visit Information Start: 04/02/21 16:53 Freq: Status: Active Protocol: Document 05/03/21 13:07 LRN (Rec: 05/03/21 15:16 LRN [id number]) Out-Patient Physical Therapy Visit Information Visit Information Visit Type Treatment Note Visit Start Time 13:07 Visit Stop Time 13:48 Total Visit Minutes 41 Visit Number 5 Evaluation Information Evaluation Date 04/08/21 Precautions Precautions History of breast cancer in 2014. PT-OP-B Current Condition Start: 04/02/21 16:53 Freq: Status: Active Protocol: Document 04/08/21 09:07 LRN (Rec: 04/08/21 12:20 LRN [id number]) Current Condition History of Current Condition Onset Date 6 weeks ago decided to seek medical care Current Complaints L knee pain intermittent History of Current Condition 6 months ago was doing wall squats, lunges, and sitting back on heels (on the floor), then a couple days later started to have knee pain. Denies injury of pain. Pain was initially under the patella, but now is around the joint. No change in last 6 months. L knee pain is intermittent in the days and after a day or two. Always wakes with pain. Has a click and has pain. If walks a lot, gets pain. Crossing leg and hears a click and all is fine. Walking even surfaces is fine, getting in/out of car is concerning because if have a twist, then can have pain. States downhill and down stairs is more painful than up. Walks a couple miles her L knee hurts . Feels like hyperextended L knee. Bending over sometimes causes the pain. Prior Treatments and Tests None Future Testing and Treatments Planned None Treatment Goals Patient/Caregiver Goals Pt goal is to get back to walking and hiking and stairs without pain. Prior Functional Status Baseline Function- ADL's Independent Baseline Function- Mobility Independent Baseline Function- Recreation/Hobbies 5 miles a day walking and hiking and able to do inclines /stairs without pain. Baseline Function- Other Able to squat Current Functional Impairments (Reported) Functional Limitations- ADL's Not able to squat Functional Limitations- Mobility/Gait Can only walk on flat surface 2 miles without pain. Not able to walk inclines/ declines, or hike without pain . Personal Factors Other Personal Factors That May Effect L Lumpectomy 2015 due to Therapy/Recovery breast cancer, clear ever since. Spouse, not working. Moved to [place] a couple years ago. PT-OP-C Subjective Start: 04/02/21 16:53 Freq: Status: Active Protocol: Document 05/03/21 13:07 LRN (Rec: 05/03/21 15:16 LRN [id number]) OP-PT Subjective Patient Comments Patient Comments Got back midnight from [place]. Did single stepping on stairs. Had quite a bit of L medial anterior knee pain after last session. Trouble sit<>stand and stairs. States K-tape was not helpful, but lasted only 1 day. States pain to start is 5/10 in L knee, but after movement and ex pain always decreases or goes away, but is worse again after sitting for awhile or with stairs. PT-OP-G Mobility & Gait Start: 04/02/21 16:53 Freq: Status: Active Protocol: Document 04/08/21 09:07 LRN (Rec: 04/08/21 12:20 LRN [id number]) Stair Climbing Evaluation Comments Stair Climbing Comments States she starts to get L knee pain going down stairs. Uses railing on the R whenever she can. PT-OP-J Posture/Palpation/Skin Start: 04/02/21 16:53 Freq: Status: Active Protocol: Document 04/08/21 09:07 LRN (Rec: 04/08/21 12:20 LRN [id number]) Posture Evaluation Position Standing Head/C-Spine Posture Forward Head T-Spine Posture Flattened L-Spine Posture Decreased Lordosis Pelvis Posture Neutral Weight Distribution Balanced Hip Posture (R) Externally Rotated Knee Posture (L) Genu Valgus,(R) Genu Valgus Ankle/Foot Posture (L) Calcaneal Eversion Foot Arch (R) Low Arch,(L) No Arch Comments Posture Comments Kyphosis at mid back, develped calf left > right. Palpation Assessment Location L knee Palpation Location L knee patella and joint. Palpation Details Crepitus at patella. No palpable tenderness. PT-OP-K Range of Motion Start: 04/02/21 16:53 Freq: Status: Active Protocol: Document 05/03/21 13:07 LRN (Rec: 03/28/22 15:16 LRN [id number]) Knee Goniometric Range of Motion Knee Right Knee ROM WFL Yes Patient Position Supine Flexion Active (degrees) 140 Comments Passive ext: Hyperext of 8 deg 's Left Knee ROM WFL No Patient Position Supine Flexion Active (degrees) 138 Comments Uncomfortable in max flexion Passive ext: Hyperext of 8 deg 's Knee ROM Limitations Knee ROM Limitations Pain,Swelling PT-OP-L Special Tests Start: 04/02/21 16:53 Freq: Status: Active Protocol: Document 04/08/21 09:07 LRN (Rec: 04/08/21 12:20 LRN [id number]) Special Tests Knee Special Tests Apley's Compression Test Results L knee positive with compression and IR Patellar Grind Test Test Results L knee positive Frandy Test Test Results L knee negative Varus- 25 Degrees Test Results L knee negative Valgus- 25 Degrees Test Results L knee negative Kirk's Test Results L knee negative Anterior Draw Test Results L knee negative PT-OP-M Strength Start: 04/02/21 16:53 Freq: Status: Active Protocol: Document 04/08/21 09:07 LRN (Rec: 04/08/21 12:20 LRN [id number]) Hip Strength Hip Manual Muscle Testing Right Extension (S1) 4- Good- Comments Generally 5/5, except as noted above Left Extension (S1) 4- Good- Comments Generally 5/5, except as noted above Knee Strength Knee Manual Muscle Testing Right Comments Generally 5/5 Left Comments Generally 5/5 Ankle/Foot Strength Ankle and Foot Manual Muscle Testing Right Comments Generally 5/5 Left Comments Generally 5/5 PT-OP-Q Treatments Start: 04/02/21 16:53 Freq: Status: Active Protocol: Document 05/03/21 13:07 LRN (Rec: 05/03/21 15:16 LRN [id number]) Cardio Equipment Bicycle (Upright) Duration (Minutes) 8 Resistance Lev 3, RPM of 70 or above Seat Position 6 with hand towel in front part of seat for comfort. Gym Equipment Cable Column (Body Solid) Leg Curl Details Leg curl with L as much as possible Resistance 15#, Therapeutic Exercises Supine Exercises L knee flex stretch Supine Exercise Name KTC stretch for L knee flex Side left Reps/Minutes 2' SLR Supine Exercise Name SLR - foot at 10, 12, 2 O' Clock position Side left Equipment Used 1# Reps/Minutes 10x each foot position. Comments Phys & v cuing for movement in straight plane and leg control Prone Exercises Hip Ext Prone Exercise Name Hip Ext Side left Equipment Used 4# Reps/Minutes 10x 3 L knee flex Prone Exercise Name L knee flex - foot at 10, 12, 2 O'Clock position Side left Equipment Used 4# Reps/Minutes 10x each foot position. Comments I/S and cued to hold foot in IR and keep foot aligned with hip. RLE to asst Sidelying Exercises Hip AD Sidelying Exercise Name HIp AD Side left Equipment Used 1# Reps/Minutes 10x 3 Comments Phys and v cuing for positioning and core stab Hip AB Sidelying Exercise Name Hip AB Side left Equipment Used 1# Reps/Minutes 10x 3 Comments Phys and v cuing for positioning and core stab Manual Therapy Treatment Taping K-tape Body Location Anteromedial L knee jt. Treatment Focus Medial meniscus injury, swelling Type of Tape Kinesio Tape Skin Inspection Good Comments 2 I-strips layered, 25% tension at joint and layerd with knee flexion PT-OP-T Assessment and Plan Start: 04/02/21 16:53 Freq: Status: Active Protocol: Document 05/03/21 13:07 LRN (Rec: 05/03/21 15:16 LRN [id number]) Physical Therapy Assessment Goals Three Impairment Decreased function of L knee. Impairment Pt not able to ambulate down stairs without pain or with eventual onset of pain. LEFS score is 49 (20-39% impaired, score of 48-62) Short Term Goal (STG) Improve L knee AROM and Improve LEFS score. STG Duration 05/08/21 Pump Room Operator Goal (LTG) Pt will be able to ambulate up /down stairs with 0/10 pain at L knee. LTG Duration 06/21/21 Two Impairment Intermittent inability to exercise due to L knee pain rated 4/10. Impairment Pt not able to hike or walking inclines/declines without L knee pain. Short Term Goal (STG) Pt will be able to exercise on stationary bike at 70 rpm for 10 minutes to improve endurance. (04/12/21: Progressed, pt able to do 6 minutes of ex) STG Duration 04/22/21 (04/19/21: Progressed ) Pump Room Operator Goal (LTG) Improve posture (strengthen hamstrings) to minimize hyperextension of L knee, with pt able to get back to walking and hiking without pain. LTG Duration 06/21/21 One Impairment Pt lacks appropriates self care HEP Short Term Goal (STG) Pt will be educated in precautions of movement (no forcing movement if locked), and educated in self K-taping for edema and stability of L medial knee. (04/12/21: Educated pt in use of K-tape and showed pt star pattern for stability to L lateral knee) 04/15/21: K taping didnt help, declined retaping- improved pain with ed for knee/hip/ trunk alignment and HS set up muscle tiring. STG Duration 04/15/21 (04/15/21: didn't help - DC GOAL) Pump Room Operator Goal (LTG) Pt will be independent in a self care HEP of LLE strengthening ex's. (04/12/21: HEP: QS & Knee flex stretch). LTG Duration 06/21/21 (04/12/21: Progressed ) Assessment Summary Assessment Pt did not feel K-tape was helpful last session, but stayed on only 1 day; therefore trial to medial side today may be more helpful. Pain decreased from 5/10 to 0/ 10 immediately after exercise. Physical Therapy Plan Frequency and Duration Frequency of Treatment 2x/Week Plan of Care Start Date 04/08/21 Plan of Care End Date 06/21/21 Next Visit Focus/Plan Next Note Type Treatment Note Next Visit Plan POC: Knee rehab for possible meniscus injury. f/u at end of May (~) Assess response to K-tape. Issue HEP for prone knee, and hip strengthening Recheck HEP: seated HS curl TB , step down LLE stance LE posterior chain wt shift. Educate pt in proper standing posture (knees & thoracic spine) Assess balance before and after K-tape. Increase L knee strength ( hamstrings - OKC 30-90 deg's > quads), strengthening with use of TBall, L ankle and hip ext strength, Improve L knee flexion mobility, Balance, gait & stair training , Improve L LE endurance (CKC rpm 70 or greater). Modalities of MH/Ice.
--- NOTE | 2021-05-10 09:20 | PT-OP ANOTE ---
Schedulers cancelled today's appt with LOSS PREVENTION INVESTIGATOR. Pt needs insurance form for continued care completed by PT, will complete next appt 05/13 with PT.
--- NOTE | 2021-05-13 16:56 | PT.OTN ---
Current Diagnoses Pain in left knee (05/13/21) Physical Therapy Treatment Note PT-OP-A Visit Information Start: 04/02/21 16:53 Freq: Status: Active Protocol: Document 05/13/21 08:16 LRN (Rec: 05/13/21 09:35 LRN [id number]) Out-Patient Physical Therapy Visit Information Visit Information Visit Type Treatment Note Visit Start Time 08:17 Visit Stop Time 09:05 Total Visit Minutes 48 Visit Number 6 Evaluation Information Evaluation Date 04/08/21 Precautions Precautions History of breast cancer in 2014. PT-OP-B Current Condition Start: 04/02/21 16:53 Freq: Status: Active Protocol: Document 04/08/21 09:07 LRN (Rec: 04/08/21 12:20 LRN [id number]) Current Condition History of Current Condition Onset Date 6 weeks ago decided to seek medical care Current Complaints L knee pain intermittent History of Current Condition 6 months ago was doing wall squats, lunges, and sitting back on heels (on the floor), then a couple days later started to have knee pain. Denies injury of pain. Pain was initially under the patella, but now is around the joint. No change in last 6 months. L knee pain is intermittent in the days and after a day or two. Always wakes with pain. Has a click and has pain. If walks a lot, gets pain. Crossing leg and hears a click and all is fine. Walking even surfaces is fine, getting in/out of car is concerning because if have a twist, then can have pain. States downhill and down stairs is more painful than up. Walks a couple miles her L knee hurts . Feels like hyperextended L knee. Bending over sometimes causes the pain. Prior Treatments and Tests None Future Testing and Treatments Planned None Treatment Goals Patient/Caregiver Goals Pt goal is to get back to walking and hiking and stairs without pain. Prior Functional Status Baseline Function- ADL's Independent Baseline Function- Mobility Independent Baseline Function- Recreation/Hobbies 5 miles a day walking and hiking and able to do inclines /stairs without pain. Baseline Function- Other Able to squat Current Functional Impairments (Reported) Functional Limitations- ADL's Not able to squat Functional Limitations- Mobility/Gait Can only walk on flat surface 2 miles without pain. Not able to walk inclines/ declines, or hike without pain . Personal Factors Other Personal Factors That May Effect L Lumpectomy 2015 due to Therapy/Recovery breast cancer, clear ever since. Spouse, not working. Moved to [place] a couple years ago. PT-OP-C Subjective Start: 04/02/21 16:53 Freq: Status: Active Protocol: Document 05/13/21 08:16 LRN (Rec: 05/13/21 09:35 LRN [id number]) OP-PT Subjective Patient Comments Patient Comments States she has gotten an xray. Pt wanting to continue therapy. Iesha Christian is moving [facility] the [facility] so she is being given a new provider by 06/03/21. Pt requests handouts for exercises. Patient Questionnaires Lower Extremity Functional Scale LEFS Score 64 LEFS Impairment 40 to 59% Impaired (Score 32- 47) PT-OP-D Balance Start: 04/02/21 16:53 Freq: Status: Active Protocol: Document 05/13/21 08:16 LRN (Rec: 05/13/21 09:35 LRN [id number]) Tinetti Balance Assessment Sitting Balance Sitting Balance Steady, safe Arising from Chair Ability to Arise Able, w/o using arms Standing Balance Immediate Standing Balance Steady w/o support Standing Balance Narrow stance w/o support Nudged Response Steady Standing with Eyes Closed Steady Turning Step Pattern Turning 360 Degrees Continuous steps Stability Turning 360 Degrees Steady Sitting Down Sitting Down Safe, steady Gait and Step Initiation of Gait No hesitancy Right Foot Step Height Completely clears floor Left Foot Step Length Does pass stance foot Left Foot Step Height Completely clears floor Step Description Step Symmetry Step length appears equal Step Continuity Steps appear continuous Gait Description Path Description Straight Trunk Description No sway Walking Stance Heels together Scoring and Interpretation Tinetti Composite Score (points) 25 Interpretation of Scores At risk for falls (19-24) Tinetti Impairment Rating from Composite 1 to <20% Impaired (Score 23- Score 27) PT-OP-E Functional Tests Start: 04/02/21 16:53 Freq: Status: Active Protocol: Document 05/13/21 08:16 LRN (Rec: 05/13/21 09:35 LRN [id number]) Functional Tests Timed Up and Go (TUG) Score 11 TUG Impairment Rating 1 to <20% Impaired (Score 11) PT-OP-G Mobility & Gait Start: 04/02/21 16:53 Freq: Status: Active Protocol: Document 04/08/21 09:07 LRN (Rec: 04/08/21 12:20 LRN [id number]) Stair Climbing Evaluation Comments Stair Climbing Comments States she starts to get L knee pain going down stairs. Uses railing on the R whenever she can. PT-OP-J Posture/Palpation/Skin Start: 04/02/21 16:53 Freq: Status: Active Protocol: Document 04/08/21 09:07 LRN (Rec: 04/08/21 12:20 LRN [id number]) Posture Evaluation Position Standing Head/C-Spine Posture Forward Head T-Spine Posture Flattened L-Spine Posture Decreased Lordosis Pelvis Posture Neutral Weight Distribution Balanced Hip Posture (R) Externally Rotated Knee Posture (L) Genu Valgus,(R) Genu Valgus Ankle/Foot Posture (L) Calcaneal Eversion Foot Arch (R) Low Arch,(L) No Arch Comments Posture Comments Kyphosis at mid back, develped calf left > right. Palpation Assessment Location L knee Palpation Location L knee patella and joint. Palpation Details Crepitus at patella. No palpable tenderness. PT-OP-K Range of Motion Start: 04/02/21 16:53 Freq: Status: Active Protocol: Document 05/13/21 08:16 LRN (Rec: 05/13/21 09:35 LRN [id number]) Knee Goniometric Range of Motion Knee Right Knee ROM WFL Yes Patient Position Supine Flexion Active (degrees) 140 Comments Passive ext: Hyperext of 8 deg 's Left Knee ROM WFL No Patient Position Supine Flexion Active (degrees) 140 Extension Active (degrees) 5 Hyper-Extension Active 8 Comments Pain on hyperext Active painfree knee ext is: lacking 5 deg's to 0 extension (passive is 8 deg's hyperextension). Ankle and Foot Goniometric Range of Motion Ankle and Foot Right Active Testing Position Supine Dorsiflexion with Knee Extended 14 Plantarflexion 64 Left Active Testing Position Supine Dorsiflexion with Knee Extended 12 Plantarflexion 60 PT-OP-L Special Tests Start: 04/02/21 16:53 Freq: Status: Active Protocol: Document 04/08/21 09:07 LRN (Rec: 04/08/21 12:20 LRN [id number]) Special Tests Knee Special Tests Apley's Compression Test Results L knee positive with compression and IR Patellar Grind Test Test Results L knee positive Frandy Test Test Results L knee negative Varus- 25 Degrees Test Results L knee negative Valgus- 25 Degrees Test Results L knee negative Kirk's Test Results L knee negative Anterior Draw Test Results L knee negative PT-OP-M Strength Start: 04/02/21 16:53 Freq: Status: Active Protocol: Document 05/13/21 08:16 LRN (Rec: 05/13/21 09:35 LR [id number]) Hip Strength Hip Manual Muscle Testing Right Extension (S1) 4+ Good+ Internal Rotation 4+ Good+ Comments Generally 5/5, except as noted above Left Abduction 3+ Fair+ Adduction 3 Fair External Rotation 4 Good Internal Rotation 4+ Good+ Comments Generally 5/5, except as noted above. Knee Strength Knee Manual Muscle Testing Right Flexion (S2) 5 Normal Extension (L3) 5 Normal Left Flexion (S2) 3+ Fair+ Extension (L3) 5 Normal PT-OP-Q Treatments Start: 04/02/21 16:53 Freq: Status: Active Protocol: Document 05/13/21 08:16 LRN (Rec: 05/13/21 09:35 LRN [id number]) Therapeutic Exercises Supine Exercises Ankle PF/DF Supine Exercise Name Ankle DF/PF Comments ROM taken L knee flex stretch Supine Exercise Name KTC stretch for L knee flex Side left Reps/Minutes 2' Comments ROM taken SLR Supine Exercise Name SLR - foot at 10, 12, 2 O' Clock position, MMT given Side left Equipment Used o#, 1# Reps/Minutes 10x each foot position. Comments Extra time to determine max tolerated resistance Sidelying Exercises Hip AD Sidelying Exercise Name HIp AD MMT given Side left Equipment Used 1# Reps/Minutes 10x 3 Comments Phys and v cuing for positioning and core stab Hip AB Sidelying Exercise Name Hip AB MMT given Side left Equipment Used 1# Reps/Minutes 10x 3 Comments Phys and v cuing for positioning and core stab Self-Care/Home Management Treatment Education Patient Education Body Mechanics,Home Exercise Program,Pain Management, Posture Activities Self-Care/Home Management Activities Issued & revlewed HEP: Hip strengthening of SLR, AB, AD, Extension; Knee flex strengthening in prone. PT-OP-T Assessment and Plan Start: 04/02/21 16:53 Freq: Status: Active Protocol: Document 05/13/21 08:16 LRN (Rec: 05/13/21 09:35 LRN [id number]) Physical Therapy Assessment Goals Three Impairment Decreased function of L knee. Impairment Pt not able to ambulate down stairs without pain or with eventual onset of pain. LEFS score is 49 (20-39% impaired, score of 48-62) Short Term Goal (STG) Improve L knee AROM and Improve LEFS score. (05/13/21: LEFS score 64 (40 to 59% Impaired with Score 32-47 )). STG Duration 05/08/21 News Video Editor Goal (LTG) Pt will be able to ambulate up /down stairs with 0/10 pain at L knee. LTG Duration 06/21/21 Two Impairment Intermittent inability to exercise due to L knee pain rated 4/10. Impairment Pt not able to hike or walking inclines/declines without L knee pain. Short Term Goal (STG) Pt will be able to exercise on stationary bike at 70 rpm for 10 minutes to improve endurance. (04/12/21: Progressed, pt able to do 6 minutes of ex) STG Duration 04/22/21 (04/19/21: Progressed ) News Video Editor Goal (LTG) Improve posture (strengthen hamstrings) to minimize hyperextension of L knee, with pt able to get back to walking and hiking without pain. LTG Duration 06/21/21 One Impairment Pt lacks appropriates self care HEP Short Term Goal (STG) Pt will be educated in precautions of movement (no forcing movement if locked), and educated in self K-taping for edema and stability of L medial knee. (04/12/21: Educated pt in use of K-tape and showed pt star pattern for stability to L lateral knee) 04/15/21: K taping didnt help, declined retaping- improved pain with ed for knee/hip/ trunk alignment and HS set up muscle tiring. STG Duration 04/15/21 (04/15/21: didn't help - DC GOAL) Usp Goal (LTG) Pt will be independent in a self care HEP of LLE strengthening ex's. (04/12/21: HEP: QS & Knee flex stretch). (05/13/21: HEP: Hip strengthening of SLR, AB, AD, Extension; Knee flex strengthening in prone) LTG Duration 06/21/21 (05/13/21: Progressed ) Progress Towards Goals Progress Comments Progressed HEP of LLE strengthening. Assessment Summary Assessment Pt returns 05/03/21 after vacation trip where she was walking on unlevel ground and ambulating many stairs. Pt has had an increase in L knee pain since her trip, but her pain worsens through the day and with activity. She states her knee used to pop and bring her some pain relief, but it hasn't happened for awhile. Her L knee AROM is WNL, but with pain on extension. Her L ankle mobility is mildly limited with straight knee DF by 2 deg 's and PF by 4 deg's. Her L knee hamstrings & hip AB/AD strength is decreased at 3/5 to 3+/5. The pt's appointment was early this morning; therefore the pt was no in discomfort to start; therefore assessment of dysfunction is not clearly evident. The pt reports the pain worsens through the day and with activities. Pt function as of this morning shows 1 < 19% impaired per LEFS score. An MRI would be helpful to rule out internal derangement at the L knee. Further therapy to improve strength and stability of the L knee, especially with knee flexion, and balance ex's to improve stability with gait would be beneficial to improve her functional ability towards the end of her day. Physical Therapy Plan Frequency and Duration Frequency of Treatment 2x/Week Plan of Care Start Date 04/08/21 Plan of Care End Date 06/21/21 Next Visit Focus/Plan Next Note Type Treatment Note Next Visit Plan Cont per pt if insurance allows more therapy; otherwise pt will choose to discharge from therapy due to financial concerns. POC: Knee rehab for possible meniscus injury. f/u at end of May (~) Assess response to K-tape. Issue HEP for prone knee, and hip strengthening Recheck HEP: seated HS curl TB , step down LLE stance LE posterior chain wt shift. Educate pt in proper standing posture (knees & thoracic spine) Assess balance before and after K-tape. Increase L knee strength ( hamstrings - OKC 30-90 deg's > quads), strengthening with use of TBall, L ankle and hip ext strength, Improve L knee flexion mobility, Balance, gait & stair training , Improve L LE endurance (CKC rpm 70 or greater). Modalities of MH/Ice.
--- NOTE | 2021-05-21 16:21 | PT-OP ANOTE ---
Pt shelley cancelled 05/24 appt due to not sure if insurance will cover appt. PYROGLAZER called pt and she stated would like to come Monday even though cancelled appt but waiting on appt with ortho and MRI approval to see if safe to continue to work with therapy and insurance cover visits. PYROGLAZER recommended to call PT insurance staff Shelley Monday morning to see if visits are authorized to continue. PYROGLAZER reviewed and pt hasn't been seen since 05/13 and cancelled last 4 consecutive appts out of 10 scheduled. There are still 2 more scheduled for the week after next and is aware of them.
--- NOTE | 2021-06-03 15:05 | PT.OPDS ---
Current Diagnoses Pain in left knee (05/13/21) Visit Care Team Role Provider Type YESICA Meza Attending Provider Advanced Asp Net Programmer Family Provider Primary Care Provider Referring Provider Specialty: Medical Address: [address] [place] [address], [id number] Email: [email or web address] Visit Number Visit Number 6 Discharge Summary PT-OP-B Current Condition Start: 04/02/21 16:53 Freq: Status: Active Protocol: Document 04/08/21 09:07 LRN (Rec: 04/08/21 12:20 LRN [id number]) Current Condition History of Current Condition Onset Date 6 weeks ago decided to seek medical care Current Complaints L knee pain intermittent History of Current Condition 6 months ago was doing wall squats, lunges, and sitting back on heels (on the floor), then a couple days later started to have knee pain. Denies injury of pain. Pain was initially under the patella, but now is around the joint. No change in last 6 months. L knee pain is intermittent in the days and after a day or two. Always wakes with pain. Has a click and has pain. If walks a lot, gets pain. Crossing leg and hears a click and all is fine. Walking even surfaces is fine, getting in/out of car is concerning because if have a twist, then can have pain. States downhill and down stairs is more painful than up. Walks a couple miles her L knee hurts . Feels like hyperextended L knee. Bending over sometimes causes the pain. Prior Treatments and Tests None Future Testing and Treatments Planned None Treatment Goals Patient/Caregiver Goals Pt goal is to get back to walking and hiking and stairs without pain. Prior Functional Status Baseline Function- ADL's Independent Baseline Function- Mobility Independent Baseline Function- Recreation/Hobbies 5 miles a day walking and hiking and able to do inclines /stairs without pain. Baseline Function- Other Able to squat Current Functional Impairments (Reported) Functional Limitations- ADL's Not able to squat Functional Limitations- Mobility/Gait Can only walk on flat surface 2 miles without pain. Not able to walk inclines/ declines, or hike without pain . Personal Factors Other Personal Factors That May Effect L Lumpectomy 2015 due to Therapy/Recovery breast cancer, clear ever since. Spouse, not working. Moved to [place] a couple years ago. PT-OP-C Subjective Start: 04/02/21 16:53 Freq: Status: Active Protocol: Document 05/13/21 08:16 LRN (Rec: 05/13/21 09:35 LRN [id number]) OP-PT Subjective Patient Comments Patient Comments States she has gotten an xray. Pt wanting to continue therapy. Iesha Christian is moving to the sleep center so she is being given a new provider by 06/03/21. Pt requests handouts for exercises. Patient Questionnaires Lower Extremity Functional Scale LEFS Score 64 LEFS Impairment 40 to 59% Impaired (Score 32- 47) PT-OP-D Balance Start: 04/02/21 16:53 Freq: Status: Active Protocol: Document 05/13/21 08:16 LRN (Rec: 05/13/21 09:35 LRN [id number]) Tinetti Balance Assessment Sitting Balance Sitting Balance Steady, safe Arising from Chair Ability to Arise Able, w/o using arms Standing Balance Immediate Standing Balance Steady w/o support Standing Balance Narrow stance w/o support Nudged Response Steady Standing with Eyes Closed Steady Turning Step Pattern Turning 360 Degrees Continuous steps Stability Turning 360 Degrees Steady Sitting Down Sitting Down Safe, steady Gait and Step Initiation of Gait No hesitancy Right Foot Step Height Completely clears floor Left Foot Step Length Does pass stance foot Left Foot Step Height Completely clears floor Step Description Step Symmetry Step length appears equal Step Continuity Steps appear continuous Gait Description Path Description Straight Trunk Description No sway Walking Stance Heels together Scoring and Interpretation Tinetti Composite Score (points) 25 Interpretation of Scores At risk for falls (19-24) Tinetti Impairment Rating from Composite 1 to <20% Impaired (Score 23- Score 27) PT-OP-E Functional Tests Start: 04/02/21 16:53 Freq: Status: Active Protocol: Document 05/13/21 08:16 LRN (Rec: 05/13/21 09:35 LRN [id number]) Functional Tests Timed Up and Go (TUG) Score 11 TUG Impairment Rating 1 to <20% Impaired (Score 11) PT-OP-G Mobility & Gait Start: 04/02/21 16:53 Freq: Status: Active Protocol: Document 04/08/21 09:07 LRN (Rec: 04/08/21 12:20 LRN [id number]) Stair Climbing Evaluation Comments Stair Climbing Comments States she starts to get L knee pain going down stairs. Uses railing on the R whenever she can. PT-OP-J Posture/Palpation/Skin Start: 04/02/21 16:53 Freq: Status: Active Protocol: Document 04/08/21 09:07 LRN (Rec: 04/08/21 12:20 LRN [id number]) Posture Evaluation Position Standing Head/C-Spine Posture Forward Head T-Spine Posture Flattened L-Spine Posture Decreased Lordosis Pelvis Posture Neutral Weight Distribution Balanced Hip Posture (R) Externally Rotated Knee Posture (L) Genu Valgus,(R) Genu Valgus Ankle/Foot Posture (L) Calcaneal Eversion Foot Arch (R) Low Arch,(L) No Arch Comments Posture Comments Kyphosis at mid back, develped calf left > right. Palpation Assessment Location L knee Palpation Location L knee patella and joint. Palpation Details Crepitus at patella. No palpable tenderness. PT-OP-K Range of Motion Start: 04/02/21 16:53 Freq: Status: Active Protocol: Document 05/13/21 08:16 LRN (Rec: 05/13/21 09:35 LRN [id number]) Knee Goniometric Range of Motion Knee Right Knee ROM WFL Yes Patient Position Supine Flexion Active (degrees) 140 Comments Passive ext: Hyperext of 8 deg 's Left Knee ROM WFL No Patient Position Supine Flexion Active (degrees) 140 Extension Active (degrees) 5 Hyper-Extension Active 8 Comments Pain on hyperext Active painfree knee ext is: lacking 5 deg's to 0 extension (passive is 8 deg's hyperextension). Ankle and Foot Goniometric Range of Motion Ankle and Foot Right Active Testing Position Supine Dorsiflexion with Knee Extended 14 Plantarflexion 64 Left Active Testing Position Supine Dorsiflexion with Knee Extended 12 Plantarflexion 60 PT-OP-L Special Tests Start: 04/02/21 16:53 Freq: Status: Active Protocol: Document 04/08/21 09:07 LRN (Rec: 04/08/21 12:20 LRN [id number]) Special Tests Knee Special Tests Apley's Compression Test Results L knee positive with compression and IR Patellar Grind Test Test Results L knee positive Frandy Test Test Results L knee negative Varus- 25 Degrees Test Results L knee negative Valgus- 25 Degrees Test Results L knee negative Kirk's Test Results L knee negative Anterior Draw Test Results L knee negative PT-OP-M Strength Start: 04/02/21 16:53 Freq: Status: Active Protocol: Document 05/13/21 08:16 LRN (Rec: 05/13/21 09:35 LRN [id number]) Hip Strength Hip Manual Muscle Testing Right Extension (S1) 4+ Good+ Internal Rotation 4+ Good+ Comments Generally 5/5, except as noted above Left Abduction 3+ Fair+ Adduction 3 Fair External Rotation 4 Good Internal Rotation 4+ Good+ Comments Generally 5/5, except as noted above. Knee Strength Knee Manual Muscle Testing Right Flexion (S2) 5 Normal Extension (L3) 5 Normal Left Flexion (S2) 3+ Fair+ Extension (L3) 5 Normal PT-OP-T Assessment and Plan Start: 04/02/21 16:53 Freq: Status: Active Protocol: Document 06/03/21 14:58 LRN (Rec: 06/03/21 15:05 LRN [id number]) Physical Therapy Assessment Goals Three Impairment Decreased function of L knee. Impairment Pt not able to ambulate down stairs without pain or with eventual onset of pain. LEFS score is 49 (20-39% impaired, score of 48-62) Short Term Goal (STG) Improve L knee AROM and Improve LEFS score. (05/13/21: LEFS score 64 (40 to 59% Impaired with Score 32-47 )). STG Duration 05/08/21 Health Policy Analyst Goal (LTG) Pt will be able to ambulate up /down stairs with 0/10 pain at L knee. LTG Duration 06/21/21 Two Impairment Intermittent inability to exercise due to L knee pain rated 4/10. Impairment Pt not able to hike or walking inclines/declines without L knee pain. Short Term Goal (STG) Pt will be able to exercise on stationary bike at 70 rpm for 10 minutes to improve endurance. (04/12/21: Progressed, pt able to do 6 minutes of ex) STG Duration 04/22/21 (04/19/21: Progressed ) Usp Goal (LTG) Improve posture (strengthen hamstrings) to minimize hyperextension of L knee, with pt able to get back to walking and hiking without pain. LTG Duration 06/21/21 One Impairment Pt lacks appropriates self care HEP Short Term Goal (STG) Pt will be educated in precautions of movement (no forcing movement if locked), and educated in self K-taping for edema and stability of L medial knee. (04/12/21: Educated pt in use of K-tape and showed pt star pattern for stability to L lateral knee) 04/15/21: K taping didnt help, declined retaping- improved pain with ed for knee/hip/ trunk alignment and HS set up muscle tiring. STG Duration 04/15/21 (04/15/21: didn't help - DC GOAL) Health Policy Analyst Goal (LTG) Pt will be independent in a self care HEP of LLE strengthening ex's. (04/12/21: HEP: QS & Knee flex stretch). (05/13/21: HEP: Hip strengthening of SLR, AB, AD, Extension; Knee flex strengthening in prone) LTG Duration 06/21/21 (05/13/21: Progressed ) Assessment Summary Assessment Pt was last seen 05/13/21. Pt had returned after vacation trip where she was walking on unlevel ground and ambulating many stairs. Pt had an increase in L knee pain since her trip and her pain was worsening through the day and with activity. She stated her knee used to pop, bringing some pain relief, but at the last visit noted no pain relief with popping. Her L knee AROM was WNL, but with pain on extension. Her L ankle mobility was mildly limited with straight knee DF by 2 deg's and PF by 4 deg's. Her L knee hamstrings & hip AB/AD strength was decreased at 3/5 to 3+/5. The pt's appointment was early this morning; therefore the pt was in no discomfort to start; therefore assessment of dysfunction was not clearly evident. The pt reported the pain worsened through the day and with activities. Pt function was 1 < 19% impaired per LEFS score. An MRI would be helpful to rule out internal derangement at the L knee. Further therapy to improve strength and stability of the L knee, especially with knee flexion, and balance ex's to improve stability with gait would be beneficial, but due to her limited insurance the pt chose not to continue and cancelled her remaining visits; therefore the pt will be discharged from physical therapy. Physical Therapy Plan Discharge Physical Therapy Discharge Reasons No Longer Attending PT Discharge Comments Thank you for your referral.
== END 2021-06-04 08:32 ==
LOC: PHYS 08:15
PROVIDERS: Family Provider Nurse Practitioner Family; PCP Nurse Practitioner Family; Referring Provider Nurse Practitioner Family; Visit Provider Nurse Practitioner Family
DX: M25.562 Pain in left knee (principal)
CPT/HCPCS: 97110; 97140; 97161; 97535

== ENCOUNTER → 2021-06-09 13:46 | Outpatient (CLI) | payer OTHER, SELFPAY ==
--- NOTE | 2021-06-09 13:48 | DI.US.S_ITS ---
PROCEDURE: US PELVIC COMPLETE INDICATIONS: ongoing pain TECHNIQUE: Real-time scanning was performed of the pelvic organs, with image documentation. Additional endovaginal scanning was necessary due to incomplete visualization of the adnexal and endometrial structures by transabdominal scanning. COMPARISON: None. FINDINGS: Uterus: Uterus is retroverted and normal in size at 7.3 x 4.4 x 5.1 cm. The myometrium is homogeneous. The endometrium measures 9 mm combined thickness. There is fluid within the endometrial canal. A left posterior subserosal fibroid measures 2.3 x 2.0 x 1.9 cm. Ovaries: The right ovary measures 1.8 x 0.9 x 2.2 cm. The left ovary measures 2.0 x 1.8 x 0.8 cm. The ovaries have a normal sonographic appearance. Less than 12 follicles can be seen in each ovary. No adnexal masses are seen. There are dilated adnexal vessels, left greater than right. Other: No pathologic free abdominal or pelvic fluid. IMPRESSION: 1. No acute ultrasound abnormality of the pelvis. 2. Subserosal uterine fibroid. 3. Adnexal vessels are dilated suggestive of pelvic congestion syndrome. We strive to produce accurate, complete, and clear reports of imaging services. To assist us in improving patient care, this report was composed using standard report templates and voice recognition software. Therefore, it may contain abnormal punctuation, insertions and/or omissions. Occasional wrong-word or sound-alike substitutions may occur. Though we review the report and make efforts to correct it, we do recommend that the report be read carefully in proper context to recognize any text inaccuracies. Dictated by: Hank Matthews M.D. on 06/10/2021 at 9:02 Approved by: Hank Matthews M.D. on 06/10/2021 at 9:06
== END ==
PROVIDERS: Family Provider Nurse Practitioner Family; PCP Registered Nurse Diabetes Educator; Referring Provider Nurse Practitioner Family; Visit Provider Nurse Practitioner Family
DX: R10.2 Pelvic and perineal pain (principal); D25.2 Subserosal leiomyoma of uterus
CPT/HCPCS: 76830; 76856

== ENCOUNTER → 2022-02-15 08:58 | Outpatient (CLI) | payer OTHER, SELFPAY ==
--- NOTE | 2022-02-15 08:59 | DI.RAD.S_ITS ---
PROCEDURE: XR LUMBAR SPINE 2-3V INDICATIONS: Evaluate right hip pain and low back pain, history of breast cancer TECHNIQUE: 3 views of the lumbar spine were acquired. COMPARISON: None. FINDINGS: [id number] lumbar levoscoliosis centered at L2-L3. Retrolisthesis of L1 on L2 measuring 5 millimeters. Retrolisthesis of L2 on L3 measuring 5 millimeters. Anterolisthesis of L4 on L5 measuring 5 millimeters. Anterolisthesis L5 on S1 measuring 2 millimeters. Vertebral body heights maintained. Moderate disc space narrowing and degenerative endplate change and facet hypertrophy from L1-L2 through L5-S1. IMPRESSION: Moderate degenerative changes with multilevel listhesis and mild to moderate scoliosis. Dictated by: Damian Franco M.D. on 02/15/2022 at 11:10 Approved by: Damian Franco M.D. on 02/15/2022 at 11:12
--- NOTE | 2022-02-15 08:59 | DI.RAD.S_ITS ---
PROCEDURE: XR HIP W PEL IF DONE RT 2V INDICATIONS: eval R hip and low back pain, hx breast CA TECHNIQUE: AP pelvis with lateral view(s) of the right hip(s). COMPARISON: None. FINDINGS: Bones: Mild bilateral hip joint space in narrowing. No fractures or dislocations. Pelvic ring appears intact. No suspicious bony lesions. Soft tissues: The visualized bowel gas pattern is normal. No suspicious soft tissue calcifications. IMPRESSION: No acute finding or suspicious bone lesion. Mild symmetric hip osteoarthritis. Dictated by: Damian Franco M.D. on 02/15/2022 at 10:36 Approved by: Damian Franco M.D. on 02/15/2022 at 10:37
== END ==
PROVIDERS: Family Provider Nurse Practitioner Family; PCP Registered Nurse Diabetes Educator; Referring Provider Registered Nurse Diabetes Educator; Visit Provider Registered Nurse Diabetes Educator
DX: M16.11 Unilateral primary osteoarthritis, right hip (principal); M25.551 Pain in right hip; M43.16 Spondylolisthesis, lumbar region; M41.9 Scoliosis, unspecified; M47.816 Spondylosis without myelopathy or radiculopathy, lumbar region; M54.50 Low back pain, unspecified
CPT/HCPCS: 72100; 73502

== ENCOUNTER → 2022-03-03 16:20 | Outpatient (CLI) | payer OTHER, SELFPAY ==
--- NOTE | 2022-03-03 16:22 | DI.US.S_ITS ---
PROCEDURE: US EXTREMELY NONVASC UPPER RT INDICATIONS: mass proximal to R 4th finger, mass L 4th finger PIP joint TECHNIQUE: Real-time scanning was performed of the right hand , with image documentation. COMPARISON: None. FINDINGS: At the volar aspect of the right hand in the area of interest superficial to the 4th digit there is subcutaneous thickening and an irregular ill-defined hypoechoic lesion measuring approximately 2.2 x 0.3 x 2.4 cm. Color Doppler flow demonstrates of there is vascularity adjacent to the lesion. IMPRESSION: Irregular subcutaneous hypoechoic lesion superficial to the 4th flexor tendon corresponds to the palpable abnormality and is most suspicious for focal fibrosis/Dupuytren's disease, although additional benign and malignant etiologies are not excluded. MRI of the hand could be performed for further evaluation if indicated clinically. Approved by: Tiago Lou M.D. on 03/04/2022 at 9:10
--- NOTE | 2022-03-03 16:22 | DI.US.S_ITS ---
PROCEDURE: US EXTREMITY NONVASC UPPER LT INDICATIONS: mass proximal to R 4th finger, mass L 4th finger PIP joint TECHNIQUE: Real-time scanning was performed of the left ring finger, with image documentation. COMPARISON: [facility], US, US EXTREMELY NONVASC UPPER RT, 03/03/2022, 16:38. FINDINGS: Mildly hypoechoic structure is seen in the subcutaneous tissues corresponding the palpable abnormality in the left ring finger measuring approximately 1.3 x 0.6 x 0.9 cm. Minimal peripheral vascularity is present. IMPRESSION: Nonspecific 1.3 cm hypoechoic lesion in the subcutaneous tissues at the palpable area of concern in the left ring finger. Differential considerations include both benign and malignant cystic and solid lesions. Consider MRI of the hand with and without contrast for further evaluation. Approved by: Tiago Lou M.D. on 03/04/2022 at 9:26
== END ==
PROVIDERS: Family Provider Nurse Practitioner Family; PCP Registered Nurse Diabetes Educator; Referring Provider Registered Nurse Diabetes Educator; Visit Provider Registered Nurse Diabetes Educator
DX: R22.43 Localized swelling, mass and lump, lower limb, bilateral
CPT/HCPCS: 76882

== ENCOUNTER → 2022-03-14 10:33 | Outpatient (CLI) | payer OTHER, SELFPAY ==
--- NOTE | 2022-03-14 | DI.US.S_ITS ---
PROCEDURE: US PELVIC COMPLETE INDICATIONS: INTERMITTENT PELVIC PAIN X 1 YEAR TECHNIQUE: Real-time scanning was performed of the pelvic organs, with image documentation. Additional endovaginal scanning was necessary due to incomplete visualization of the adnexal and endometrial structures by transabdominal scanning. COMPARISON: [facility], US, US PELVIC COMPLETE, 06/09/2021, 15:19. FINDINGS: Uterus: Uterus is retroverted and normal in size at 5.8 x 4.6 x 5.4 cm. The myometrium is heterogeneous. 1.7 x 1.3 x 2 cm subserosal fibroid in left anterior myometrium is seen previously measures 2.3 x 2 x 1.9 cm in size. The endometrium measures 11 mm combined thickness. 1.1 x 1.1 x 0.6 cm solid mass is noted within endometrium and show subtle internal vascularity. Ovaries: The right ovary measures 1.6 x 0.8 x 1.3 cm, with a calculated ovarian volume of 0.8 cc. The left ovary measures 1.8 x 1.2 x 0.6 cm, with a calculated ovarian volume of 0.7 cc. The ovaries have a normal sonographic appearance. Less than 12 follicles can be seen in each ovary. No adnexal masses are seen. Other: No pathologic free abdominal or pelvic fluid. IMPRESSION: 1. Interval decrease in size of previously noted left anterior myometrial fibroid as above. 2. 1.1 x 1.1 x 0.6 cm solid-appearing mass within endometrium which may represent a polyp, [employer] OPERATOR correlation is recommended. 3. Normal appearing bilateral ovaries. We strive to produce accurate, complete, and clear reports of imaging services. To assist us in improving patient care, this report was composed using standard report templates and voice recognition software. Therefore, it may contain abnormal punctuation, insertions and/or omissions. Occasional wrong-word or sound-alike substitutions may occur. Though we review the report and make efforts to correct it, we do recommend that the report be read carefully in proper context to recognize any text inaccuracies. Dictated by: Redd Snigh M.D. on 03/14/2022 at 12:44 Approved by: Redd Singh M.D. on 03/14/2022 at 12:56
== END ==
PROVIDERS: Family Provider Nurse Practitioner Family; PCP Registered Nurse Diabetes Educator; Referring Provider Registered Nurse Diabetes Educator; Visit Provider Registered Nurse Diabetes Educator
DX: D25.2 Subserosal leiomyoma of uterus (principal); N85.9 Noninflammatory disorder of uterus, unspecified; R10.2 Pelvic and perineal pain
CPT/HCPCS: 76830; 76856

== ENCOUNTER → 2022-09-05 14:13 | Outpatient (CLI) | payer OTHER, SELFPAY ==
--- NOTE | 2022-09-05 14:14 | DI.US.S_ITS ---
PROCEDURE: US PELVIC COMPLETE INDICATIONS: ENDOMETRIAL MASS TECHNIQUE: Real-time scanning was performed of the pelvic organs, with image documentation. Additional endovaginal scanning was necessary due to incomplete visualization of the adnexal and endometrial structures by transabdominal scanning. COMPARISON: [facility], , US PELVIC COMPLETE, 03/14/2022, 10:43. FINDINGS: Uterus: Uterus is anteverted and normal in size at 5.6 x 3.5 x 4.9 cm. The myometrium is homogeneous. The endometrium measures 2.5 mm combined thickness. Again noted is a left anterior intramural fibroid measuring 2.1 x 1.4 x 2.0 cm. Previous measurements were 1.7 x 1.3 x 2.0 cm. This is within normal limits of variation secondary to differences in technique. Again noted is an a vascular endometrial mass, likely an endometrial polyp. It is stable in size. Previous measurements were 1.1 x 1.1 x 0.6 cm. Today's measurements are 1.1 x 0.7 x 1.0 cm. Ovaries: The right ovary measures 2.0 x 0.9 x 0.9 cm, with a calculated ovarian volume of 0.8 cc. The left ovary measures 2.0 x 2.0 x 0.7 cm, with a calculated ovarian volume of 1.4 cc. The ovaries have a normal sonographic appearance. No adnexal masses are seen. Other: No pathologic free abdominal or pelvic fluid. IMPRESSION: 1. No significant change in size or appearance of probable endometrial polyp. It measures 1.1 x 0.7 x 1.0 cm. There is no associated increased vascularity. 2. Incidental uterine fibroid. We strive to produce accurate, complete, and clear reports of imaging services. To assist us in improving patient care, this report was composed using standard report templates and voice recognition software. Therefore, it may contain abnormal punctuation, insertions and/or omissions. Occasional wrong-word or sound-alike substitutions may occur. Though we review the report and make efforts to correct it, we do recommend that the report be read carefully in proper context to recognize any text inaccuracies. Dictated by: Turner Falcon M.D. on 09/05/2022 at 15:42 Approved by: Turner Falcon M.D. on 09/05/2022 at 15:46
== END ==
PROVIDERS: Family Provider Nurse Practitioner Family; PCP Registered Nurse Diabetes Educator; Referring Provider Obstetrics & Gynecology; Visit Provider Obstetrics & Gynecology
DX: N94.89 Other specified conditions associated with female genital organs and menstrual cycle (principal); D25.1 Intramural leiomyoma of uterus; N85.9 Noninflammatory disorder of uterus, unspecified
CPT/HCPCS: 76830; 76856

== ENCOUNTER → 2023-01-10 09:12 | Outpatient (CLI) | payer SELFPAY ==
[2023-01-10 10:14] LABS: Hematocrit 38.9 % (36-46); Hemoglobin 13.3 g/dL (12.0-16.0); Mean Corpuscular HGB Conc 34.1 % (30-36); Mean Corpuscular Volume 87.9 fL (80-100); Platelet Count 261 X10^3/uL (150-400); Red Blood Cell Count 4.42 X10^6/uL (4.0-5.2); Red Cell Distribution Width 13.8 % (11.6-14.8)
[2023-01-10 10:47] LABS: Alanine Aminotransferase 20 IU/L (<35); Albumin 4.4 g/dL (3.5-5.0); Albumin Globulin Ratio 1.6 (1.0-2.8); Alkaline Phosphatase 51 U/L (38-126); Aspartate Aminotransferase 26 IU/L (14-36); BUN Creatinine Ratio 19.4 (6-22); Bilirubin Total 0.7 mg/dL (0.2-1.3); Blood Urea Nitrogen 12 mg/dL (7-17); Calcium 9.7 mg/dL (8.4-10.2); Carbon Dioxide 28 mmol/L (22-32); Chloride 101 mmol/L (98-107); Cholesterol 215 mg/dL (140-199); Estimated Glomerular Filt Rate > 60 mL/min (>60); Globulin 2.8 g/dL (1.7-4.1); Glucose 121 mg/dL (80-110); HEMOLYSIS < 15 (0-50); Potassium 4.5 mmol/L (3.4-5.1); Sodium 135 mmol/L (137-145); Total Protein 7.2 g/dL (6.3-8.2); Triglycerides 128 mg/dL (35-150)
[2023-01-10 11:06] LABS: HDL Cholesterol 70 mg/dL (40-60); LDL Cholesterol Calculated 119 mg/dL (<100)
[2023-01-10 11:10] LABS: TSH w/ Reflex to FT4 2.33 uIU/mL (0.47-4.68)
== END ==
PROVIDERS: PCP Registered Nurse Diabetes Educator; Referring Provider Registered Nurse Diabetes Educator; Visit Provider Registered Nurse Diabetes Educator
DX: Z13.220 Encounter for screening for lipoid disorders (principal); Z13.29 Encounter for screening for other suspected endocrine disorder; D64.9 Anemia, unspecified
CPT/HCPCS: 36415; 80053; 80061; 84443; 85027

== ENCOUNTER → 2023-05-16 13:54 | Outpatient (CLI) | payer OTHER, SELFPAY ==
--- NOTE | 2023-05-16 13:56 | DI.RAD.S_ITS ---
PROCEDURE: XR LUMBAR SPINE 2-3V INDICATIONS: back pain x 1 week, compare to prior TECHNIQUE: 3 views of the lumbar spine were acquired. COMPARISON: [facility], , XR LUMBAR SPINE 2-3V, 02/15/2022, 9:11. FINDINGS: Bones: 5 [id number] vertebrae are present. Mild convex left curvature of the lumbar spine, centered at L3. This is stable from prior. Grade 1 retrolisthesis of L1 on L2, L2 on L3, and grade 1 anterolisthesis of L4 on L5, stable from prior. Severe disc height loss at L2-3, L4-5, progressed from prior. Moderate disc height loss at remaining levels, unchanged from prior. Facet arthrosis of L3 through S1, unchanged from prior. Soft tissues: Overlying bowel gas pattern is normal. No suspicious soft tissue calcifications. IMPRESSION: Progressive, moderate to severe degenerative disc disease and facet arthrosis. Degenerative listhesis, stable from prior. Dictated by: Josh Barr M.D. on 05/16/2023 at 16:50 Approved by: Josh Barr M.D. on 05/16/2023 at 16:52
== END ==
PROVIDERS: PCP Registered Nurse Diabetes Educator; Referring Provider Physician Assistant; Visit Provider Physician Assistant
DX: M51.36 Other intervertebral disc degeneration, lumbar region (principal); M47.816 Spondylosis without myelopathy or radiculopathy, lumbar region; M47.817 Spondylosis without myelopathy or radiculopathy, lumbosacral region; M43.16 Spondylolisthesis, lumbar region; M54.50 Low back pain, unspecified; M41.9 Scoliosis, unspecified
CPT/HCPCS: 72100

== ENCOUNTER → 2023-05-30 15:00 | Outpatient (CLI) | payer OTHER, SELFPAY ==
--- NOTE | 2023-05-30 15:00 | DI.RAD.S_ITS ---
PROCEDURE: XR DEXA AXIAL SKELETON INDICATIONS: screening COMPARISON: None. FINDINGS: Lumbar Spine: Bone mineral density 1.147 g/cm2, T score 0.9. Left Hip: Bone mineral density 0.997 g/cm2, T score 0.4. Left Femoral Neck: Bone mineral density 0.787 g/cm2, T score -0.6. Right Hip: Bone mineral density 1.042 g/cm2, T score 0.8. Right Femoral Neck: Bone mineral density 0.802 g/cm2, T score -0.4. Fracture Risk Calculation (when applicable): Not provided due to bone mineral density within normal limits. (T score greater or equal to -1.0 to: NORMAL) (T score from -1.1 to -2.4: OSTEOPENIA) (T score less than or equal to -2.5: OSTEOPOROSIS) IMPRESSION: 1. Bone mineral density is within normal limits. Dictated by: Gamaliel Lowery M.D. on 05/30/2023 at 20:37 Approved by: Gamaliel Lowery M.D. on 05/30/2023 at 20:39
== END ==
PROVIDERS: PCP Registered Nurse Diabetes Educator; Referring Provider Physician Assistant; Visit Provider Physician Assistant
DX: M41.9 Scoliosis, unspecified (principal); Z78.0 Asymptomatic menopausal state
CPT/HCPCS: 77080

== ENCOUNTER → 2023-07-24 09:41 | Outpatient (CLI) | payer OTHER, SELFPAY ==
[2023-07-24 10:29] LABS: Hemoglobin A1C% w Est Avg Glu 5.6 % (4.0-6.0)
[2023-07-24 10:41] LABS: Cholesterol 209 mg/dL (140-199); Glucose 111 mg/dL (80-110); HDL Cholesterol 80 mg/dL (40-60); LDL Cholesterol Calculated 102 mg/dL (<100); Triglycerides 137 mg/dL (35-150)
== END ==
PROVIDERS: PCP Registered Nurse Diabetes Educator; Referring Provider Registered Nurse Diabetes Educator; Visit Provider Registered Nurse Diabetes Educator
DX: E78.5 Hyperlipidemia, unspecified (principal); R73.01 Impaired fasting glucose
CPT/HCPCS: 36415; 80061; 82947; 83036

== ENCOUNTER → 2023-07-31 11:47 | Outpatient (CLI) | payer OTHER, SELFPAY ==
--- NOTE | 2023-07-31 11:48 | DI.MG.S_ITS ---
BILATERAL DIGITAL SCREENING MAMMOGRAM 3D/2D WITH CAD POST LUMPECTOMY: 07/31/2023 CLINICAL: Routine screening. Personal history of left breast cancer. Family history of breast cancer. Comparison is made to exams dated: 04/26/2022 mammogram, 02/10/2021 mammogram, and 06/13/2020 mammogram - Outside facility. There are scattered areas of fibroglandular density in both breasts (category b / 25%-50% glandular tissue). Current study was also evaluated with a Computer Aided Detection (CAD) system. There are benign post operative findings in the left breast. No significant masses, calcifications, or other findings are seen in either breast. There has been no significant interval change. IMPRESSION: BENIGN There is no mammographic evidence of malignancy. A 1 year screening mammogram is recommended. This exam was interpreted at Station ID: [id number]. NOTE: For mammograms, a report in lay terms will be sent to the patient. Approximately 15% of breast malignancies will not be visualized mammographically. In the management of a palpable breast mass, a negative mammogram must not discourage biopsy of a clinically suspicious lesion. Electronically Signed By: Oswaldo leal/hermila:07/31/2023 13:19:21 letter sent: Normal Exam ACR BI-RADS Category 2: Benign Finding(s) 3342F
== END ==
PROVIDERS: PCP Registered Nurse Diabetes Educator; Referring Provider Registered Nurse Diabetes Educator; Visit Provider Registered Nurse Diabetes Educator
DX: Z12.31 Encounter for screening mammogram for malignant neoplasm of breast (principal); Z85.3 Personal history of malignant neoplasm of breast; Z80.3 Family history of malignant neoplasm of breast; R92.323 Mammographic fibroglandular density, bilateral breasts
CPT/HCPCS: 77063; 77067

== ENCOUNTER → 2023-12-08 12:01 | Outpatient (CLI) | payer MEDICARE, OTHER, SELFPAY ==
--- NOTE | 2023-12-08 12:04 | DI.RAD.S_ITS ---
PROCEDURE: XR HIP W PEL IF DONE LT 2V INDICATIONS: eval hip pain, no injury TECHNIQUE: AP pelvis with lateral view(s) of the bilateral hip(s), four views total. COMPARISON: [facility], , XR HIP W PEL IF DONE RT 2V, 02/15/2022, 9:11. FINDINGS: Bones: No fractures or dislocations. Pelvic ring appears intact. No suspicious bony lesions. Soft tissues: The visualized bowel gas pattern is normal. No suspicious soft tissue calcifications. IMPRESSION: No acute bony abnormality. Minimal symmetric hip joint osteoarthritis. Dictated by: Rashaun Elizabeth M.D. on 12/08/2023 at 13:18 Approved by: Rashaun Elizabeth M.D. on 12/08/2023 at 13:19
== END ==
PROVIDERS: PCP Registered Nurse Diabetes Educator; Referring Provider Registered Nurse Diabetes Educator; Visit Provider Registered Nurse Diabetes Educator
DX: M25.552 Pain in left hip (principal); G89.29 Other chronic pain
CPT/HCPCS: 73502

== ENCOUNTER → 2023-12-20 15:14 | Outpatient (CLI) | payer MEDICARE, OTHER, SELFPAY ==
--- NOTE | 2023-12-20 | DI.RAD.S_ITS ---
PROCEDURE: FL HIP INJECTION MR/CT LT INDICATIONS: left hip pain TECHNIQUE: The indications, alternatives, benefits, risks, and complications of the procedure were explained to the patient. Written informed consent was obtained and placed in the chart. The hip was examined fluoroscopically with the legs fixed in slight internal rotation, and a site for needle placement chosen for entry into the hip joint from an anterior approach. Care was taken to locate the common femoral artery and vein beforehand. The skin was prepped and draped in a sterile fashion. A spinal needle was inserted into the joint followed by approximately 11 mL dilute solution of a gadolinium containing MR contrast agent mix in equal parts 1% lidocaine and Isovue-M 300 contrast. The needle was removed and a dressing was applied. The patient was given postprocedural instructions and sent to the MR suite for imaging. COMPARISON: [facility], , MR HIP LT W CON, 12/20/2023, 15:28. FINDINGS: A single fluoroscopic spot image demonstrates intra-articular location of injected iodinated contrast. IMPRESSION: Successful fluoroscopically guided administration of dilute Gadolinium solution into the hip joint for MR arthrogram. Dictated by: Bipin Carlos M.D. on 12/20/2023 at 17:21 Approved by: Bipin Carlos M.D. on 12/20/2023 at 17:23
--- NOTE | 2023-12-20 15:16 | DI.MRI.S_ITS ---
PROCEDURE: MR HIP LT W CON INDICATIONS: chronic L hip pain TECHNIQUE: After the administration of 10 mL of dilute intra-articular Gadolinium contrast, coronal STIR of the bony pelvis; coronal and oblique axial T1 spin echo with fat saturation, axial T2 fast spin echo with fat saturation, sagittal T1 spin echo with and without fat saturation of the involved hip. COMPARISON: [facility], CR, XR HIP W PEL IF DONE LT 2V, 12/08/2023, 12:09. FINDINGS: Image quality: Excellent. Bones and joints: [id number]-lb-[id number] left hip joint osteoarthritic changes are seen with joint space narrowing and subchondral sclerosis. There is no marrow edema. No intraosseous lesions or fractures. No avascular necrosis of the femoral head. Mild prominence of superior left femoral head neck junction is seen which can be seen associated with CAM type femoral acetabular impingement. The visualized lower lumbar spine appears normally aligned. Tendons and ligaments: Tendinosis and low-grade partial-thickness tear involving distal left gluteus medius tendon at its insertion on greater trochanter is seen. Distal left gluteus minimus tendinosis is also seen. Small amount of fluid distending trochanteric bursa is noted. The nearby proximal iliotibial band also appears intact. The iliopsoas tendon appears intact, without adjacent bursal fluid collections or evidence for impingement syndrome. Tendinosis is seen involving origins of left hamstring tendons at ischial tuberosity. Labrum and cartilage: There is contrast extension and fraying of superior anterior acetabular labrum suggestive of superior anterior labral tear. Diffuse thinning of articulating cartilage over right femoral head is seen. Soft tissues: Visualized muscles demonstrate normal bulk and internal signal. Quadratus femoris muscle demonstrates no internal edema to suggest ischiofemoral impingement. The proximal sciatic neurovascular bundle appears normal adjacent to the hamstring tendons. No free pelvic fluid. Bladder wall thickness is normal. Genitourinary structures and bowel loops appear normal where visualized. IMPRESSION: 1. Qpmf-wc-wdwrottv left hip joint osteoarthritis. No pelvic or hip fracture. Prominence of superior anterior left femoral head neck junction which can be seen associated with CAM type femoral acetabular impingement. No evidence of avascular necrosis of femoral head. 2. Low-grade partial-thickness tear involving distal left gluteus medius tendon. Distal left gluteus minimus tendinosis. Small amount of fluid within trochanteric bursa concerning for low-grade bursitis. Tendinosis involving left hamstring tendon origins at ischial tuberosity. 3. Suggestion of superior anterior acetabular labral tear. 4. No intra-articular loose bodies . Dictated by: Redd Singh M.D. on 12/20/2023 at 21:19 Approved by: Redd Singh M.D. on 12/20/2023 at 21:25
[2023-12-20] MEDS: LIDOCAINE 1% 20 ML INJ (16:04)
[2023-12-20] MEDS: SODIUM CHLORIDE 0.9 % 20 ML VIAL IV (16:05)
== END ==
PROVIDERS: PCP Registered Nurse Diabetes Educator; Referring Provider Registered Nurse Diabetes Educator; Visit Provider Registered Nurse Diabetes Educator
DX: M16.12 Unilateral primary osteoarthritis, left hip (principal); S76.012A Strain of muscle, fascia and tendon of left hip, initial encounter; M25.552 Pain in left hip; G89.29 Other chronic pain
CPT/HCPCS: 27093; 73525; 73722; A9579

== ENCOUNTER → 2024-02-21 08:57 | Outpatient (CLI) | payer MEDICARE, OTHER, SELFPAY ==
[2024-02-21 09:19] LABS: Hematocrit 38.4 % (36-46); Hemoglobin 12.8 g/dL (12.0-16.0); Mean Corpuscular HGB Conc 33.4 % (30-36); Mean Corpuscular Volume 89.7 fL (80-100); Platelet Count 264 X10^3/uL (150-400); Red Blood Cell Count 4.29 X10^6/uL (4.0-5.2); Red Cell Distribution Width 14.1 % (11.6-14.8)
[2024-02-21 09:43] LABS: Hemoglobin A1C% w Est Avg Glu 5.6 % (4.0-6.0)
[2024-02-21 09:50] LABS: Alanine Aminotransferase 22 IU/L (<35); Albumin 4.4 g/dL (3.5-5.0); Albumin Globulin Ratio 1.6 (1.0-2.8); Alkaline Phosphatase 47 U/L (38-126); Aspartate Aminotransferase 29 IU/L (14-36); Bilirubin Total 0.4 mg/dL (0.2-1.3); Blood Urea Nitrogen 11 mg/dL (7-17); Carbon Dioxide 29 mmol/L (22-32); Chloride 103 mmol/L (98-107); Cholesterol 219 mg/dL (140-199); Estimated Glomerular Filt Rate > 60 mL/min (>60); Globulin 2.7 g/dL (1.7-4.1); Glucose 121 mg/dL (80-110); HDL Cholesterol 73 mg/dL (40-60); HEMOLYSIS < 15 (0-50); LDL Cholesterol Calculated 128 mg/dL (<100); Potassium 4.1 mmol/L (3.4-5.1); Sodium 135 mmol/L (137-145); Total Protein 7.1 g/dL (6.3-8.2); Triglycerides 89 mg/dL (35-150)
[2024-02-21 10:20] LABS: TSH w/ Reflex to FT4 3.46 uIU/mL (0.47-4.68)
[2024-02-22 17:06] LABS: Hep C Virus Ab w/Reflex Quant NEGATIVE s/c (NEGATIVE)
== END ==
PROVIDERS: PCP Registered Nurse Diabetes Educator; Referring Provider Registered Nurse Diabetes Educator; Visit Provider Registered Nurse Diabetes Educator
DX: Z00.00 Encounter for general adult medical examination without abnormal findings (principal); R73.01 Impaired fasting glucose; E78.5 Hyperlipidemia, unspecified; R03.0 Elevated blood-pressure reading, without diagnosis of hypertension; D72.819 Decreased white blood cell count, unspecified
CPT/HCPCS: 36415; 80053; 80061; 83036; 84443; 85027; 86803

== ENCOUNTER → 2024-07-31 08:27 | Outpatient (CLI) | payer MEDICARE, OTHER, SELFPAY ==
--- NOTE | 2024-07-31 08:28 | DI.MG.S_ITS ---
MM screening mammo BI: 07/31/2024. BI-RADS: 2 CLINICAL: 63-year old female for bilateral screening mammogram. No Tyrer-Cuzick risk score calculation due to the patient's personal history of breast cancer. Patient reports a history of left breast carcinoma diagnosed at age 53. Status-post left lumpectomy with radiation therapy and hormonal therapy. Current reported family history of breast cancer: mother and maternal aunt. The patient reports testing negative for BRCA gene mutation. The patient had a prior left breast biopsy. PRIOR EXAMS 07/31/2023, Outside priors - 04/26/2022, 02/10/2021, 07/03/2020. MAMMOGRAPHY TECHNIQUE: 2D and 3D (tomosynthesis) digital mammographic views obtained, with additional images as needed for full coverage. Current study was also evaluated with a Computer Aided Detection (CAD) system. DENSITY B. There are scattered areas of fibroglandular density. MAMMOGRAPHY FINDINGS Right: No suspicious mass, asymmetry, microcalcification, or other abnormality seen. Left: Surgical clips present on the left. Benign-appearing calcifications and post-surgical changes noted on the left. There are no suspicious masses, calcifications, or other findings in the breast. IMPRESSION: Right * No evidence of malignancy. Left * No evidence of malignancy with benign findings. RECOMMENDATIONS Bilateral * Annual screening mammography. OVERALL ASSESSMENT CATEGORY BI-RADS-2: Benign. [employer] recommends annual screening mammography beginning at age 40 for women with average risk of breast cancer. ELECTRONICALLY SIGNED: Ernesto Bautista M.D. on 07/31/2024 at 04:33:22 PM PT Interpreting Station ID: [id number]
== END ==
LOC: MAMMO 08:28
PROVIDERS: PCP Registered Nurse Diabetes Educator; Referring Provider Registered Nurse Diabetes Educator; Visit Provider Registered Nurse Diabetes Educator
DX: Z12.31 Encounter for screening mammogram for malignant neoplasm of breast (principal); Z85.3 Personal history of malignant neoplasm of breast; Z80.3 Family history of malignant neoplasm of breast
CPT/HCPCS: 77063; 77067